=== PATIENT | male | born 1950 | race African-American/Black ===

== ENCOUNTER 2016-04-13 15:20 | Inpatient (IN) | payer OTHER, MEDICAID ==
[2016-04-13] VITALS (8 sets, daily range): BP systolic 114–145; BP diastolic 70–85; PULSE 67–87; RESP 16–26; TEMP 97.2–98.7; O2SAT 95–100
[~2016-04-13] VITALS: Ht 172.7 cm; Wt 90.7 kg
[~2016-04-13 15:20] MED LIST: ASPI-1063 PO; ATOR10TA68 PO; BUDE6HFA INH; CHOL200010 PO; CYCL-10 PO; DILT30TA36 PO; FOLI-43 PO; GLIP5TAB13 PO; LEVA15HF5 INH; LEVE500T13 PO; OMEP20CA10 PO; TERA5CAP58 PO; THIA100T13 PO; TIOT18CA3 IH
[2016-04-13] MEDS ORDERED: methylPREDNISolone SOD SUCC/PF 62.5 MG/ML VIAL ONE (15:39)
[2016-04-13] MEDS ORDERED: PIPERACILLIN/TAZO 3.38 GM in D5W 50 ML IV ONE (15:45)
[2016-04-13 16:07] LABS: BASOPHILS # (AUTO) 0.3 K/uL (0.0-0.2); BASOPHILS % (AUTO) 3.4 % (0.0-2.0); EOSINOPHILS % (AUTO) 0.3 % (0.0-4.0); HEMATOCRIT 41.9 % (36-54); HEMOGLOBIN 13.5 g/dL (14.0-18.0); LYMPHOCYTES # (AUTO) 1.1 K/uL (1.0-5.5); LYMPHOCYTES % (AUTO) 10.9 % (20.5-51.5); MEAN CORPUSCULAR HEMOGLOBIN 33 pg (27-31); MEAN CORPUSCULAR HGB CONC 32 % (32-36); MEAN CORPUSCULAR VOLUME 104 fL (79.0-98.0); MONOCYTES % (AUTO) 10.3 % (1.7-9.3); NEUTROPHILS # (AUTO) 7.3 K/uL (1.8-7.7); NEUTROPHILS % (AUTO) 75.1 % (40.0-70.0); PLATELET COUNT (AUTO) 251 K/uL (130-430); RED BLOOD CELL COUNT(AUTO) 4.05 MIL/uL (4.2-6.2); RED CELL DISTRIBUTION WIDTH 12.9 % (9.0-15.0); WHITE BLOOD COUNT (AUTO) 9.7 K/uL (4.8-10.8)
[2016-04-13 16:15] LABS: CALCIUM 8.4 mg/dL (8.4-11.0); CREATININE 1.39 mg/dL (0.55-1.30); POTASSIUM 4.5 mmol/L (3.5-5.1)
[2016-04-13] MEDS ORDERED: IPRATROPIUM/ALBUTEROL SULFATE 3 ML AMPUL.NEB INH ONE (16:15)
[2016-04-13] MEDS ORDERED: cefTRIAXone 1 GM IVPB PREMIX 50 ML IV ONE (16:15)
[2016-04-13 16:20] LABS: ALBUMIN 3.8 g/dL (3.4-4.8); TOTAL BILIRUBIN 0.7 mg/dL (0.0-1.0)
[2016-04-13] MEDS ORDERED: GLUXR500 PO (17:04)
[2016-04-13] MEDS ORDERED: PIPERACILLIN/TAZOBACTAM 3.375 GM/VIAL (ZOSYN) IV ONE ×2 (17:18→21:18)
[2016-04-13 17:55] LABS: BLOOD GAS PH 7.132 (7.350-7.450)
[2016-04-13 17:56] LABS: ABG TOTAL HEMOGLOBIN 14.5 G/dL (12.0-18.0); BLOOD GAS BASE EXCESS -0.8 mmol/L (-3.0-3.0); BLOOD GAS COHb% 1.9 % (0.5-1.5); BLOOD GAS HHB 9.4 % (0.0-6.0); BLOOD O2Hb% 88.2 % (94.0-97.0)
[2016-04-13 18:55] LABS: ABG TOTAL HEMOGLOBIN 14.4 G/dL (12.0-18.0); BLOOD GAS BASE EXCESS -0.2 mmol/L (-3.0-3.0); BLOOD GAS COHb% 1.6 % (0.5-1.5); BLOOD GAS HHB 8.5 % (0.0-6.0); BLOOD GAS PH 7.189 (7.350-7.450); BLOOD O2Hb% 89.2 % (94.0-97.0)
[2016-04-13] MEDS ORDERED: ROCURONIUM BROMIDE 10 MG/ML (ZEMURON) IV ONE (19:15)
[2016-04-13] MEDS ORDERED: ETOMIDATE 20 MG/ 10 ML VIAL (AMIDATE) IVP ONE (19:15)
[2016-04-13] MEDS ORDERED: MIDAZOLAM HCL 5 MG/5 ML VIAL ONE (19:25)
[2016-04-13] MEDS ORDERED: MIDAZOLAM HCL 5 MG/5 ML VIAL IVP ONE (19:30)
[2016-04-13] MEDS ORDERED: NACL 0.9% 1,000 ML IV ONE (19:45)
[2016-04-13] MEDS ORDERED: POTASSIUM CHLORIDE 10 MEQ in NACL 0.9% 1,000 ML IV SCH (20:00)
[2016-04-13 20:58] LABS: BLOOD GAS PH 7.331 (7.350-7.450)
[2016-04-13 20:59] LABS: ABG TOTAL HEMOGLOBIN 14.3 G/dL (12.0-18.0); BLOOD GAS BASE EXCESS 0.4 mmol/L (-3.0-3.0); BLOOD GAS COHb% 1.5 % (0.5-1.5); BLOOD GAS HHB 0.2 % (0.0-6.0); BLOOD O2Hb% 97.5 % (94.0-97.0)
[2016-04-13] MEDS: D5/0.45 NS 1,000 ML IV SCH (20:59)
[2016-04-13] MEDS ORDERED: HYDROmorphone 1 MG INJ. 1 MG/ML AMPUL IM PRN (21:00)
[2016-04-13] MEDS ORDERED: MAGNESIUM SULFATE 50 ML IV ONE (21:00)
[2016-04-13] MEDS: levETIRAcetam 500 MG in NS 100 ML IV SCH (21:33)
[2016-04-13] MEDS: PANTOPRAZOLE SODIUM 40 MG/VIAL (PROTONIX) IVP SCH (21:42)
[2016-04-13] MEDS: ENOXAPARIN SODIUM 30 MG/0.3 ML SYRINGE SUBCUT SCH (21:42)
[2016-04-13] MEDS: methylPREDNISolone SOD SUCC/PF 62.5 MG/ML VIAL IVP SCH (21:42)
[2016-04-13] MEDS ORDERED: ROCURONIUM BROMIDE 10 MG/ML (ZEMURON) ONE (22:00)
[2016-04-13] MEDS ORDERED: ETOMIDATE 20 MG/ 10 ML VIAL (AMIDATE) ONE (22:00)
[2016-04-13] MEDS: LORazepam 2 MG/ML VIAL IVP PRN ×2 (22:54→23:56)
[2016-04-13] MEDS: ALBUTEROL SULFATE 0.083% 2.5 MG/3 ML VIAL.NEB INH SCH (23:20)
[2016-04-13] MEDS: PIPERACILLIN/TAZO 3.375/DEX-IS 50 ML IV SCH (23:30)
[2016-04-13] MEDS: INSULIN REGULAR, HUMAN 100 UNITS/ML, 10 ML VIAL (novoLIN R) SUBCUT PRN (23:48)
[2016-04-14] VITALS (38 sets, daily range): BP systolic 108–158; BP diastolic 65–95; PULSE 74–116; RESP 16–32; TEMP 98.2–100.1; O2SAT 84–99
[2016-04-14] MEDS: HYDROmorphone 1 MG INJ. 1 MG/ML AMPUL IV PRN ×2 (00:18→22:19)
[2016-04-14] MEDS: ALBUTEROL SULFATE 0.083% 2.5 MG/3 ML VIAL.NEB INH SCH ×6 (03:30→23:31)
[2016-04-14] MEDS: LORazepam 2 MG/ML VIAL IVP PRN ×3 (05:45→22:20)
[2016-04-14] MEDS: PIPERACILLIN/TAZO 3.375/DEX-IS 50 ML IV SCH ×3 (05:45→18:24)
[2016-04-14] MEDS: methylPREDNISolone SOD SUCC/PF 62.5 MG/ML VIAL IVP SCH ×3 (05:46→22:19)
[2016-04-14] MEDS: INSULIN REGULAR, HUMAN 100 UNITS/ML, 10 ML VIAL (novoLIN R) SUBCUT PRN ×3 (06:29→18:47)
[2016-04-14 07:07] LABS: BASOPHILS % (AUTO) 0.1 % (0.0-2.0); HEMATOCRIT 36.3 % (36-54); LYMPHOCYTES # (AUTO) 0.2 K/uL (1.0-5.5); LYMPHOCYTES % (AUTO) 2.7 % (20.5-51.5); MEAN CORPUSCULAR HEMOGLOBIN 34 pg (27-31); MEAN CORPUSCULAR HGB CONC 33 % (32-36); MEAN CORPUSCULAR VOLUME 102 fL (79.0-98.0); MONOCYTES # (AUTO) 0.2 K/uL (0.0-1.0); MONOCYTES % (AUTO) 2.7 % (1.7-9.3); NEUTROPHILS # (AUTO) 7.9 K/uL (1.8-7.7); NEUTROPHILS % (AUTO) 94.5 % (40.0-70.0); PLATELET COUNT (AUTO) 228 K/uL (130-430); RED BLOOD CELL COUNT(AUTO) 3.55 MIL/uL (4.2-6.2); RED CELL DISTRIBUTION WIDTH 12.9 % (9.0-15.0); WHITE BLOOD COUNT (AUTO) 8.3 K/uL (4.8-10.8)
[2016-04-14 07:09] LABS: BILIRUBIN,URINE NEGATIVE (NEGATIVE); CLARITY/URINE CLOUDY (CLEAR); COLOR,URINE YELLOW (YELLOW); GLUCOSE,URINE NEGATIVE (NEGATIVE); KETONES,URINE NEGATIVE (NEGATIVE); LEUKOCYTE ESTERASE ,URINE 1+ (NEGATIVE); NITRITE, URINE NEGATIVE (NEGATIVE); PH,URINE 5.5 (5.0-8.0); PROTEIN URINE 2+ (NEGATIVE)
[2016-04-14 07:11] LABS: BLOOD, URINE TRACE (NEGATIVE)
[2016-04-14 07:24] LABS: BARBITURATE, URINE NEGATIVE (NEG <=200); BENZODIAZEPINE, URINE NEGATIVE (NEG <=150); CANNABINOID, URINE NEGATIVE (NEG <=50); COCAINE, URINE NEGATIVE (NEG <=150); METHAMPHETAMINES SCREEN,URINE NEGATIVE (NEG <=500); OPIATE, URINE NEGATIVE (NEG <=100); PHENCYCLIDINE SCREEN,URINE NEGATIVE (NEG <=25); UR TRICYCLIC ANTIDEPRESSANTS NEGATIVE (NEG <=300); URINE AMPHETAMINE NEGATIVE (NEG <=500); URINE METHADONE POSITIVE (NEG <=200); URINE OXYCODONE SCREEN NEGATIVE (NEG <=100); URINE PROPOXYPHENE SCREEN NEGATIVE (NEG <=300)
[2016-04-14 07:29] LABS: BACTERIA,URINE MANY /HPF (None Seen); URINE AMORPHOUS URATE 4+ /HPF (None Seen)
[2016-04-14 07:39] LABS: INR 1.2 (0.80-1.20); PROTHROMBIN TIME 12.8 SECS (9.5-12.5)
[2016-04-14 07:59] LABS: ALBUMIN 3.2 g/dL (3.4-4.8); CREATININE 1.55 mg/dL (0.55-1.30); POTASSIUM 4.7 mmol/L (3.5-5.1); TOTAL BILIRUBIN 0.7 mg/dL (0.0-1.0); TOTAL PROTEIN, SERUM 6.9 g/dL (6.4-8.3)
[2016-04-14 08:40] LABS: BLOOD GAS PH 7.316 (7.350-7.450)
[2016-04-14 08:41] LABS: ABG TOTAL HEMOGLOBIN 13.8 G/dL (12.0-18.0); BLOOD GAS BASE EXCESS -0.6 mmol/L (-3.0-3.0); BLOOD GAS COHb% 1.3 % (0.5-1.5); BLOOD O2Hb% 93.3 % (94.0-97.0)
[2016-04-14] MEDS: D5/0.45 NS 1,000 ML IV SCH ×2 (10:20→16:28)
[2016-04-14] MEDS: PANTOPRAZOLE SODIUM 40 MG/VIAL (PROTONIX) IVP SCH ×2 (10:20→20:09)
[2016-04-14] MEDS: levETIRAcetam 500 MG in NS 100 ML IV SCH ×2 (10:20→20:09)
[2016-04-14] MEDS ORDERED: ETOMIDATE 20 MG/ 10 ML VIAL (AMIDATE) IVP ONE (15:00)
[2016-04-14] MEDS ORDERED: VECURONIUM BROMIDE 10 MG/VIAL (NORCURON) IV ONE (15:00)
[2016-04-14 16:50] LABS: BARBITURATE, URINE NEGATIVE (NEG <=200); BENZODIAZEPINE, URINE POSITIVE (NEG <=150); CANNABINOID, URINE NEGATIVE (NEG <=50); COCAINE, URINE NEGATIVE (NEG <=150); METHAMPHETAMINES SCREEN,URINE NEGATIVE (NEG <=500); OPIATE, URINE POSITIVE (NEG <=100); PHENCYCLIDINE SCREEN,URINE NEGATIVE (NEG <=25); UR TRICYCLIC ANTIDEPRESSANTS NEGATIVE (NEG <=300); URINE AMPHETAMINE NEGATIVE (NEG <=500); URINE METHADONE NEGATIVE (NEG <=200); URINE OXYCODONE SCREEN NEGATIVE (NEG <=100); URINE PROPOXYPHENE SCREEN NEGATIVE (NEG <=300)
[2016-04-14] MEDS ORDERED: methylPREDNISolone SOD SUCC/PF 62.5 MG/ML VIAL IVP ONE (17:45)
[2016-04-14] MEDS ORDERED: methylPREDNISolone SOD SUCC/PF 62.5 MG/ML VIAL ONE (18:07)
[2016-04-14 18:50] LABS: ABG TOTAL HEMOGLOBIN 14.2 G/dL (12.0-18.0); BLOOD GAS PH 7.202 (7.350-7.450)
[2016-04-14 18:51] LABS: BLOOD GAS HHB 6.3 % (0.0-6.0); BLOOD O2Hb% 92.4 % (94.0-97.0)
[2016-04-14] MEDS ORDERED: MIDAZOLAM HCL 5 MG/5 ML VIAL ONE (19:06)
[2016-04-14] MEDS: ENOXAPARIN SODIUM 30 MG/0.3 ML SYRINGE SUBCUT SCH (20:10)
[2016-04-14 20:13] LABS: ABG TOTAL HEMOGLOBIN 13.3 G/dL (12.0-18.0); BLOOD GAS BASE EXCESS 0.2 mmol/L (-3.0-3.0); BLOOD GAS COHb% 0.6 % (0.5-1.5); BLOOD GAS HHB 2.8 % (0.0-6.0); BLOOD GAS PH 7.406 (7.350-7.450); BLOOD O2Hb% 96.3 % (94.0-97.0)
[2016-04-14] MEDS: PROPOFOL DRIP 100 ML IV PRN (22:50)
[2016-04-15] VITALS (37 sets, daily range): BP systolic 110–163; BP diastolic 61–104; PULSE 56–100; RESP 16–27; TEMP 97.7–98.3; O2SAT 90–99
[2016-04-15] MEDS: PIPERACILLIN/TAZO 3.375/DEX-IS 50 ML IV SCH ×4 (00:38→17:16)
[2016-04-15] MEDS: INSULIN REGULAR, HUMAN 100 UNITS/ML, 10 ML VIAL (novoLIN R) SUBCUT PRN ×2 (00:49→17:19)
[2016-04-15] MEDS: D5/0.45 NS 1,000 ML IV SCH ×3 (01:21→22:19)
[2016-04-15] MEDS: HYDROmorphone 1 MG INJ. 1 MG/ML AMPUL IV PRN (02:26)
[2016-04-15] MEDS: ALBUTEROL SULFATE 0.083% 2.5 MG/3 ML VIAL.NEB INH SCH ×6 (03:46→23:29)
[2016-04-15] MEDS: methylPREDNISolone SOD SUCC/PF 62.5 MG/ML VIAL IVP SCH ×3 (05:43→21:35)
[2016-04-15 07:38] LABS: BASOPHILS % (AUTO) 0.1 % (0.0-2.0); EOSINOPHILS % (AUTO) 0.1 % (0.0-4.0); HEMATOCRIT 36.8 % (36-54); HEMOGLOBIN 12.1 g/dL (14.0-18.0); LYMPHOCYTES # (AUTO) 0.2 K/uL (1.0-5.5); MEAN CORPUSCULAR HEMOGLOBIN 34 pg (27-31); MEAN CORPUSCULAR HGB CONC 33 % (32-36); MEAN CORPUSCULAR VOLUME 103 fL (79.0-98.0); MONOCYTES # (AUTO) 0.4 K/uL (0.0-1.0); MONOCYTES % (AUTO) 5.4 % (1.7-9.3); NEUTROPHILS # (AUTO) 7.4 K/uL (1.8-7.7); NEUTROPHILS % (AUTO) 91.4 % (40.0-70.0); PLATELET COUNT (AUTO) 236 K/uL (130-430); RED BLOOD CELL COUNT(AUTO) 3.57 MIL/uL (4.2-6.2); RED CELL DISTRIBUTION WIDTH 12.6 % (9.0-15.0)
[2016-04-15 08:10] LABS: ALBUMIN 3.1 g/dL (3.4-4.8); CALCIUM 8.1 mg/dL (8.4-11.0); CREATININE 1.3 mg/dL (0.55-1.30); TOTAL BILIRUBIN 0.9 mg/dL (0.0-1.0); TOTAL PROTEIN, SERUM 6.7 g/dL (6.4-8.3)
[2016-04-15] MEDS: levETIRAcetam 500 MG in NS 100 ML IV SCH ×2 (08:25→21:33)
[2016-04-15] MEDS: PANTOPRAZOLE SODIUM 40 MG/VIAL (PROTONIX) IVP SCH ×2 (08:25→21:33)
[2016-04-15 11:49] LABS: ABG TOTAL HEMOGLOBIN 13.7 G/dL (12.0-18.0); BLOOD GAS BASE EXCESS -0.2 mmol/L (-3.0-3.0); BLOOD GAS PH 7.363 (7.350-7.450); BLOOD O2Hb% 97.2 % (94.0-97.0)
[2016-04-15 11:50] LABS: BLOOD GAS COHb% 0.9 % (0.5-1.5); BLOOD GAS HHB 1.6 % (0.0-6.0)
[2016-04-15] MEDS: PROPOFOL DRIP 100 ML IV PRN ×2 (14:55→22:23)
[2016-04-15] MEDS: ENOXAPARIN SODIUM 30 MG/0.3 ML SYRINGE SUBCUT SCH (21:35)
[2016-04-16] VITALS (35 sets, daily range): BP systolic 114–147; BP diastolic 52–96; PULSE 57–105; RESP 13–36; TEMP 97.2–99.9; O2SAT 94–100
[2016-04-16] MEDS: PIPERACILLIN/TAZO 3.375/DEX-IS 50 ML IV SCH ×5 (00:09→23:39)
[2016-04-16] MEDS: INSULIN REGULAR, HUMAN 100 UNITS/ML, 10 ML VIAL (novoLIN R) SUBCUT PRN ×4 (00:21→18:22)
[2016-04-16] MEDS: PROPOFOL DRIP 100 ML IV PRN ×6 (02:11→20:46)
[2016-04-16] MEDS: ALBUTEROL SULFATE 0.083% 2.5 MG/3 ML VIAL.NEB INH SCH ×5 (04:31→20:02)
[2016-04-16] MEDS: methylPREDNISolone SOD SUCC/PF 62.5 MG/ML VIAL IVP SCH ×3 (05:29→21:39)
[2016-04-16 07:10] LABS: HEMATOCRIT 39.3 % (36-54); MEAN CORPUSCULAR HEMOGLOBIN 34 pg (27-31); MEAN CORPUSCULAR HGB CONC 33 % (32-36); MEAN CORPUSCULAR VOLUME 103 fL (79.0-98.0); PLATELET COUNT (AUTO) 255 K/uL (130-430); RED BLOOD CELL COUNT(AUTO) 3.83 MIL/uL (4.2-6.2); RED CELL DISTRIBUTION WIDTH 12.7 % (9.0-15.0)
[2016-04-16 07:14] LABS: WHITE BLOOD COUNT (AUTO) 11.2 K/uL (4.8-10.8)
[2016-04-16 07:29] LABS: CALCIUM 8.6 mg/dL (8.4-11.0); CREATININE 1.19 mg/dL (0.55-1.30); POTASSIUM 4.1 mmol/L (3.5-5.1)
[2016-04-16 08:19] LABS: ATYPICAL LYMPHOCYTES % 0 % (0-0); BAND % (MANUAL) 0 % (0-6); BASOPHILS % (MANUAL) 0 % (0-2); EOSINOPHILS % (MANUAL) 0 % (0-7); LYMPHOCYTES % (MANUAL) 3 % (20-46); MONOCYTES % (MANUAL) 4 % (0-11)
[2016-04-16] MEDS: PANTOPRAZOLE SODIUM 40 MG/VIAL (PROTONIX) IVP SCH ×2 (08:58→21:39)
[2016-04-16] MEDS: levETIRAcetam 500 MG in NS 100 ML IV SCH ×2 (08:59→20:39)
[2016-04-16 09:53] LABS: ABG TOTAL HEMOGLOBIN 13.7 G/dL (12.0-18.0); BLOOD GAS BASE EXCESS 0.3 mmol/L (-3.0-3.0); BLOOD GAS COHb% 1.1 % (0.5-1.5); BLOOD GAS HHB 7.1 % (0.0-6.0); BLOOD GAS PH 7.362 (7.350-7.450); BLOOD O2Hb% 91.5 % (94.0-97.0)
[2016-04-16] MEDS: LORazepam 2 MG/ML VIAL IVP PRN ×2 (09:59→22:38)
[2016-04-16] MEDS: ALBUTEROL SULFATE 0.083% 2.5 MG/3 ML VIAL.NEB INH PRN (13:35)
[2016-04-16] MEDS: D5/0.45 NS 1,000 ML IV SCH (20:35)
[2016-04-16] MEDS: ENOXAPARIN SODIUM 30 MG/0.3 ML SYRINGE SUBCUT SCH (21:39)
[2016-04-17] VITALS (37 sets, daily range): BP systolic 105–152; BP diastolic 58–98; PULSE 65–109; RESP 15–33; TEMP 98–99.7; O2SAT 93–100
[2016-04-17] MEDS: ALBUTEROL SULFATE 0.083% 2.5 MG/3 ML VIAL.NEB INH SCH ×7 (00:02→23:42)
[2016-04-17] MEDS: INSULIN REGULAR, HUMAN 100 UNITS/ML, 10 ML VIAL (novoLIN R) SUBCUT PRN ×5 (00:05→23:35)
[2016-04-17] MEDS: PROPOFOL DRIP 100 ML IV PRN ×6 (00:42→22:23)
[2016-04-17] MEDS: methylPREDNISolone SOD SUCC/PF 62.5 MG/ML VIAL IVP SCH ×3 (05:50→22:03)
[2016-04-17] MEDS: PIPERACILLIN/TAZO 3.375/DEX-IS 50 ML IV SCH ×4 (05:56→23:29)
[2016-04-17 06:48] LABS: BASOPHILS # (AUTO) 0.1 K/uL (0.0-0.2); BASOPHILS % (AUTO) 0.4 % (0.0-2.0); HEMOGLOBIN 12.9 g/dL (14.0-18.0); LYMPHOCYTES # (AUTO) 0.2 K/uL (1.0-5.5); LYMPHOCYTES % (AUTO) 1.2 % (20.5-51.5); MEAN CORPUSCULAR HEMOGLOBIN 33 pg (27-31); MEAN CORPUSCULAR HGB CONC 33 % (32-36); MEAN CORPUSCULAR VOLUME 101 fL (79.0-98.0); MONOCYTES # (AUTO) 0.8 K/uL (0.0-1.0); MONOCYTES % (AUTO) 5.9 % (1.7-9.3); NEUTROPHILS % (AUTO) 92.5 % (40.0-70.0); PLATELET COUNT (AUTO) 265 K/uL (130-430); RED BLOOD CELL COUNT(AUTO) 3.88 MIL/uL (4.2-6.2); RED CELL DISTRIBUTION WIDTH 12.7 % (9.0-15.0); WHITE BLOOD COUNT (AUTO) 14.1 K/uL (4.8-10.8)
[2016-04-17 07:03] LABS: CALCIUM 8.6 mg/dL (8.4-11.0); CREATININE 1.18 mg/dL (0.55-1.30); POTASSIUM 4.8 mmol/L (3.5-5.1)
[2016-04-17 07:39] LABS: BLOOD GAS PH 7.393 (7.350-7.450)
[2016-04-17 07:40] LABS: ABG TOTAL HEMOGLOBIN 14.1 G/dL (12.0-18.0); BLOOD GAS BASE EXCESS 3.4 mmol/L (-3.0-3.0); BLOOD O2Hb% 90.1 % (94.0-97.0)
[2016-04-17 07:41] LABS: BLOOD GAS COHb% 1.4 % (0.5-1.5)
[2016-04-17] MEDS: PANTOPRAZOLE SODIUM 40 MG/VIAL (PROTONIX) IVP SCH ×2 (08:47→20:47)
[2016-04-17] MEDS: levETIRAcetam 500 MG in NS 100 ML IV SCH ×2 (08:48→20:47)
[2016-04-17] MEDS: D5/0.45 NS 1,000 ML IV SCH (13:25)
[2016-04-17] MEDS ORDERED: FUROSEMIDE 20 MG/2 ML VIAL IVP ONE (14:30)
[2016-04-17] MEDS: HYDROmorphone 1 MG INJ. 1 MG/ML AMPUL IV PRN (17:32)
[2016-04-17] MEDS: ENOXAPARIN SODIUM 40 MG/0.4 ML SYRINGE ONE ×2 (20:48→20:50)
[2016-04-17] MEDS: ENOXAPARIN SODIUM 30 MG/0.3 ML SYRINGE SUBCUT SCH (20:50)
[2016-04-18] VITALS (34 sets, daily range): BP systolic 100–139; BP diastolic 22–92; PULSE 76–102; RESP 12–35; TEMP 97.6–100; O2SAT 95–100; Ht 172.7 cm; Wt 90.7 kg
[2016-04-18] MEDS: LORazepam 2 MG/ML VIAL IVP PRN (00:18)
[2016-04-18] MEDS: PROPOFOL DRIP 100 ML IV PRN ×5 (02:08→21:28)
[2016-04-18] MEDS: ALBUTEROL SULFATE 0.083% 2.5 MG/3 ML VIAL.NEB INH SCH ×6 (03:48→23:00)
[2016-04-18] MEDS: PIPERACILLIN/TAZO 3.375/DEX-IS 50 ML IV SCH ×3 (05:34→18:35)
[2016-04-18] MEDS: methylPREDNISolone SOD SUCC/PF 62.5 MG/ML VIAL IVP SCH ×3 (05:36→21:24)
[2016-04-18] MEDS: INSULIN REGULAR, HUMAN 100 UNITS/ML, 10 ML VIAL (novoLIN R) SUBCUT PRN ×3 (05:49→18:38)
[2016-04-18 06:20] LABS: BASOPHILS # (AUTO) 0.1 K/uL (0.0-0.2); BASOPHILS % (AUTO) 0.8 % (0.0-2.0); HEMATOCRIT 38.5 % (36-54); HEMOGLOBIN 12.5 g/dL (14.0-18.0); LYMPHOCYTES # (AUTO) 0.3 K/uL (1.0-5.5); LYMPHOCYTES % (AUTO) 2.5 % (20.5-51.5); MEAN CORPUSCULAR HEMOGLOBIN 33 pg (27-31); MEAN CORPUSCULAR HGB CONC 32 % (32-36); MEAN CORPUSCULAR VOLUME 102 fL (79.0-98.0); MONOCYTES # (AUTO) 0.8 K/uL (0.0-1.0); MONOCYTES % (AUTO) 7.6 % (1.7-9.3); NEUTROPHILS # (AUTO) 8.8 K/uL (1.8-7.7); NEUTROPHILS % (AUTO) 89.1 % (40.0-70.0); PLATELET COUNT (AUTO) 239 K/uL (130-430); RED BLOOD CELL COUNT(AUTO) 3.76 MIL/uL (4.2-6.2)
[2016-04-18 06:55] LABS: CALCIUM 8.5 mg/dL (8.4-11.0); CREATININE 1.11 mg/dL (0.55-1.30); POTASSIUM 4.8 mmol/L (3.5-5.1)
[2016-04-18] MEDS: PANTOPRAZOLE SODIUM 40 MG/VIAL (PROTONIX) IVP SCH ×2 (09:08→21:24)
[2016-04-18] MEDS: levETIRAcetam 500 MG in NS 100 ML IV SCH ×2 (09:09→21:26)
[2016-04-18] MEDS: D5/0.45 NS 1,000 ML IV SCH (09:10)
[2016-04-18 09:24] LABS: BLOOD GAS PH 7.313 (7.350-7.450)
[2016-04-18 09:26] LABS: ABG TOTAL HEMOGLOBIN 13.7 G/dL (12.0-18.0); BLOOD GAS BASE EXCESS 4.8 mmol/L (-3.0-3.0); BLOOD GAS COHb% 0.9 % (0.5-1.5); BLOOD GAS HHB 6.2 % (0.0-6.0); BLOOD O2Hb% 92.4 % (94.0-97.0)
[2016-04-18] MEDS ORDERED: ASPIRIN 81 MG TAB.CHEW PO ONE (11:00)
[2016-04-18] MEDS ORDERED: CARVEDILOL 6.25 MG TABLET (COREG) PO ONE (11:00)
[2016-04-18 13:41] LABS: ABG TOTAL HEMOGLOBIN 13.8 G/dL (12.0-18.0); BLOOD GAS BASE EXCESS 2.4 mmol/L (-3.0-3.0); BLOOD GAS COHb% 1.4 % (0.5-1.5); BLOOD GAS HHB 5.3 % (0.0-6.0); BLOOD GAS PH 7.299 (7.350-7.450); BLOOD O2Hb% 92.7 % (94.0-97.0)
[2016-04-18 14:35] LABS: INR 1.1 (0.80-1.20); PROTHROMBIN TIME 12.1 SECS (9.5-12.5)
[2016-04-18] MEDS ORDERED: CARVEDILOL 6.25 MG TABLET (COREG) PO SCH (21:00)
[2016-04-18] MEDS: ENOXAPARIN SODIUM 40 MG/0.4 ML SYRINGE SUBCUT SCH (21:24)
[2016-04-19] VITALS (36 sets, daily range): BP systolic 109–145; BP diastolic 55–98; PULSE 68–89; RESP 12–20; TEMP 97.5–98.7; O2SAT 96–100
[2016-04-19] MEDS: PIPERACILLIN/TAZO 3.375/DEX-IS 50 ML IV SCH ×5 (00:44→23:30)
[2016-04-19] MEDS: INSULIN REGULAR, HUMAN 100 UNITS/ML, 10 ML VIAL (novoLIN R) SUBCUT PRN ×5 (00:46→23:35)
[2016-04-19] MEDS: PROPOFOL DRIP 100 ML IV PRN ×4 (01:21→18:02)
[2016-04-19] MEDS: D5/0.45 NS 1,000 ML IV SCH ×2 (02:41→15:53)
[2016-04-19] MEDS: ALBUTEROL SULFATE 0.083% 2.5 MG/3 ML VIAL.NEB INH SCH ×6 (03:01→23:36)
[2016-04-19] MEDS: IPRATROPIUM BROM 0.5 MG/2.5 ML VIAL.NEB (ATROVENT) INH PRN (03:01)
[2016-04-19] MEDS: methylPREDNISolone SOD SUCC/PF 62.5 MG/ML VIAL IVP SCH ×3 (05:25→22:19)
[2016-04-19 07:19] LABS: BASOPHILS % (AUTO) 0.2 % (0.0-2.0); EOSINOPHILS % (AUTO) 0.1 % (0.0-4.0); HEMATOCRIT 38.2 % (36-54); HEMOGLOBIN 12.4 g/dL (14.0-18.0); LYMPHOCYTES # (AUTO) 0.2 K/uL (1.0-5.5); MEAN CORPUSCULAR HEMOGLOBIN 34 pg (27-31); MEAN CORPUSCULAR HGB CONC 32 % (32-36); MEAN CORPUSCULAR VOLUME 104 fL (79.0-98.0); MONOCYTES # (AUTO) 0.9 K/uL (0.0-1.0); MONOCYTES % (AUTO) 7.2 % (1.7-9.3); NEUTROPHILS # (AUTO) 11.2 K/uL (1.8-7.7); NEUTROPHILS % (AUTO) 90.5 % (40.0-70.0); PLATELET COUNT (AUTO) 231 K/uL (130-430); RED BLOOD CELL COUNT(AUTO) 3.67 MIL/uL (4.2-6.2); RED CELL DISTRIBUTION WIDTH 12.9 % (9.0-15.0); WHITE BLOOD COUNT (AUTO) 12.4 K/uL (4.8-10.8)
[2016-04-19 07:51] LABS: CALCIUM 8.7 mg/dL (8.4-11.0); CHLORIDE 106 mmol/L (98-107); CREATININE 1.13 mg/dL (0.55-1.30); GLUCOSE 237 mg/dL (70-99); POTASSIUM 4.8 mmol/L (3.5-5.1); SODIUM SERUM 141 mmol/L (136-145); UREA NITROGEN, BLOOD 26 mg/dL (8-21)
[2016-04-19 08:06] LABS: ALANINE AMINOTRANSFERASE 11 U/L (12-78); ALBUMIN 2.5 g/dL (3.4-4.8); ASPARTATE AMINOTRANSFERASE 15 U/L (10-37); FREE T4 (FREE THYROXINE) 0.8 ng/dl (0.8-1.5); THYROID STIMULATING HORMONE 0.98 uIu/mL (0.36-3.74); TOTAL BILIRUBIN 0.7 mg/dL (0.0-1.0); TOTAL PROTEIN, SERUM 5.9 g/dL (6.4-8.3)
[2016-04-19 08:12] LABS: ANION GAP < 3 (5-15); GFR AFRICAN AMERICAN 83 mL/min (>90)
[2016-04-19 08:29] LABS: CHOLESTEROL 120 mg/dL (<200); HDL CHOLESTEROL 60 mg/dL (>45); LDL CHOLESTEROL 52 mg/dL (<100); TRIGLYCERIDES 85 mg/dL (30-150)
[2016-04-19 08:29] LABS: BLOOD GAS PH 7.366 (7.350-7.450)
[2016-04-19 08:30] LABS: ABG TOTAL HEMOGLOBIN 13.3 G/dL (12.0-18.0); BLOOD GAS BASE EXCESS 6.9 mmol/L (-3.0-3.0); BLOOD GAS COHb% 1.3 % (0.5-1.5); BLOOD GAS HHB 3.7 % (0.0-6.0); BLOOD O2Hb% 94.4 % (94.0-97.0)
[2016-04-19] MEDS: levETIRAcetam 500 MG in NS 100 ML IV SCH ×2 (10:00→20:18)
[2016-04-19] MEDS: PANTOPRAZOLE SODIUM 40 MG/VIAL (PROTONIX) IVP SCH ×2 (10:01→20:21)
[2016-04-19] MEDS: CARVEDILOL 6.25 MG TABLET (COREG) PO SCH ×2 (10:01→20:21)
[2016-04-19] MEDS: ASPIRIN 81 MG TAB.CHEW PO SCH (10:02)
[2016-04-19] MEDS: ATORVASTATIN 20 MG TABLET PO SCH (10:02)
[2016-04-19] MEDS: HYDROmorphone 1 MG INJ. 1 MG/ML AMPUL IV PRN (15:59)
[2016-04-19] MEDS ORDERED: BUDESONIDE 0.5 MG/2 ML AMPUL.NEB INH ONE (16:15)
[2016-04-19] MEDS: BUDESONIDE 0.5 MG/2 ML AMPUL.NEB INH SCH (19:25)
[2016-04-19] MEDS: ENOXAPARIN SODIUM 40 MG/0.4 ML SYRINGE SUBCUT SCH (20:21)
[2016-04-20] VITALS (36 sets, daily range): BP systolic 100–142; BP diastolic 17–96; PULSE 79–97; RESP 14–26; TEMP 97.2–98.8; O2SAT 97–100
[2016-04-20] MEDS: IPRATROPIUM BROM 0.5 MG/2.5 ML VIAL.NEB (ATROVENT) INH PRN (02:47)
[2016-04-20] MEDS: ALBUTEROL SULFATE 0.083% 2.5 MG/3 ML VIAL.NEB INH SCH ×6 (02:47→23:14)
[2016-04-20] MEDS: PROPOFOL DRIP 100 ML IV PRN ×3 (04:31→15:30)
[2016-04-20] MEDS: PIPERACILLIN/TAZO 3.375/DEX-IS 50 ML IV SCH (05:31)
[2016-04-20] MEDS: methylPREDNISolone SOD SUCC/PF 62.5 MG/ML VIAL IVP SCH ×3 (05:32→22:45)
[2016-04-20] MEDS: INSULIN REGULAR, HUMAN 100 UNITS/ML, 10 ML VIAL (novoLIN R) SUBCUT PRN ×4 (05:36→23:42)
[2016-04-20 07:01] LABS: BASOPHILS % (AUTO) 0.2 % (0.0-2.0); EOSINOPHILS % (AUTO) 0.1 % (0.0-4.0); HEMATOCRIT 41.1 % (36-54); LYMPHOCYTES # (AUTO) 0.3 K/uL (1.0-5.5); LYMPHOCYTES % (AUTO) 1.7 % (20.5-51.5); MEAN CORPUSCULAR HEMOGLOBIN 32 pg (27-31); MEAN CORPUSCULAR HGB CONC 32 % (32-36); MEAN CORPUSCULAR VOLUME 103 fL (79.0-98.0); MONOCYTES # (AUTO) 1.1 K/uL (0.0-1.0); MONOCYTES % (AUTO) 6.6 % (1.7-9.3); PLATELET COUNT (AUTO) 266 K/uL (130-430); RED BLOOD CELL COUNT(AUTO) 4.01 MIL/uL (4.2-6.2); RED CELL DISTRIBUTION WIDTH 12.8 % (9.0-15.0); WHITE BLOOD COUNT (AUTO) 17.4 K/uL (4.8-10.8)
[2016-04-20 07:12] LABS: ALBUMIN 2.6 g/dL (3.4-4.8); CREATININE 1.06 mg/dL (0.55-1.30); POTASSIUM 4.6 mmol/L (3.5-5.1); TOTAL BILIRUBIN 0.7 mg/dL (0.0-1.0); TOTAL PROTEIN, SERUM 6.6 g/dL (6.4-8.3)
[2016-04-20] MEDS: BUDESONIDE 0.5 MG/2 ML AMPUL.NEB INH SCH ×2 (07:31→19:41)
[2016-04-20 07:50] LABS: BLOOD GAS PH 7.416 (7.350-7.450)
[2016-04-20 07:51] LABS: ABG TOTAL HEMOGLOBIN 13.7 G/dL (12.0-18.0); BLOOD GAS BASE EXCESS 7.1 mmol/L (-3.0-3.0); BLOOD GAS COHb% 1.5 % (0.5-1.5); BLOOD O2Hb% 94.2 % (94.0-97.0)
[2016-04-20] MEDS: ASPIRIN 81 MG TAB.CHEW PO SCH (09:02)
[2016-04-20] MEDS: ATORVASTATIN 20 MG TABLET PO SCH (09:02)
[2016-04-20] MEDS: PANTOPRAZOLE SODIUM 40 MG/VIAL (PROTONIX) IVP SCH ×2 (09:02→20:59)
[2016-04-20] MEDS: CARVEDILOL 6.25 MG TABLET (COREG) PO SCH ×2 (09:03→20:59)
[2016-04-20 09:45] LABS: NEUTROPHILS % (AUTO) 91.4 % (40.0-70.0)
[2016-04-20] MEDS: D5/0.45 NS 1,000 ML IV SCH (11:10)
[2016-04-20] MEDS: levETIRAcetam 500 MG in NS 100 ML IV SCH ×2 (11:11→21:02)
[2016-04-20] MEDS ORDERED: BISACODYL 10 MG/SUPPOSITORY RC PRN (13:15)
[2016-04-20] MEDS ORDERED: BISACODYL 10 MG/SUPPOSITORY RC ONE (13:15)
[2016-04-20] MEDS ORDERED: LACTOBACILLUS RHAMNOSUS GG 1 CAP CAPSULE PO ONE (14:15)
[2016-04-20] MEDS: PIPERACILLIN/TAZOBACTAM 3.375 GM/ D5W 50 ML IV SCH ×4 (17:48→23:43)
[2016-04-20] MEDS: ENOXAPARIN SODIUM 40 MG/0.4 ML SYRINGE SUBCUT SCH (21:00)
[2016-04-20] MEDS: LACTOBACILLUS RHAMNOSUS GG 1 CAP CAPSULE PO SCH (21:00)
[2016-04-21] VITALS (36 sets, daily range): BP systolic 104–151; BP diastolic 6–114; PULSE 71–106; RESP 14–26; TEMP 97.6–99.9; O2SAT 96–100
[2016-04-21] MEDS: PROPOFOL DRIP 100 ML IV PRN ×4 (00:59→21:39)
[2016-04-21] MEDS: ALBUTEROL SULFATE 0.083% 2.5 MG/3 ML VIAL.NEB INH SCH ×6 (02:28→23:15)
[2016-04-21] MEDS: D5/0.45 NS 1,000 ML IV SCH (06:35)
[2016-04-21] MEDS: PIPERACILLIN/TAZOBACTAM 3.375 GM/ D5W 50 ML IV SCH ×8 (06:41→23:48)
[2016-04-21] MEDS: methylPREDNISolone SOD SUCC/PF 62.5 MG/ML VIAL IVP SCH ×2 (06:41→21:15)
[2016-04-21] MEDS: LORazepam 2 MG/ML VIAL IVP PRN (06:42)
[2016-04-21] MEDS: INSULIN REGULAR, HUMAN 100 UNITS/ML, 10 ML VIAL (novoLIN R) SUBCUT PRN ×2 (06:43→17:59)
[2016-04-21 07:15] LABS: BASOPHILS % (AUTO) 0.1 % (0.0-2.0); HEMATOCRIT 38.5 % (36-54); HEMOGLOBIN 12.6 g/dL (14.0-18.0); LYMPHOCYTES # (AUTO) 0.4 K/uL (1.0-5.5); LYMPHOCYTES % (AUTO) 2.3 % (20.5-51.5); MEAN CORPUSCULAR HEMOGLOBIN 33 pg (27-31); MEAN CORPUSCULAR HGB CONC 33 % (32-36); MEAN CORPUSCULAR VOLUME 102 fL (79.0-98.0); MONOCYTES # (AUTO) 1.3 K/uL (0.0-1.0); MONOCYTES % (AUTO) 7.6 % (1.7-9.3); NEUTROPHILS # (AUTO) 14.8 K/uL (1.8-7.7); PLATELET COUNT (AUTO) 229 K/uL (130-430); RED BLOOD CELL COUNT(AUTO) 3.76 MIL/uL (4.2-6.2); RED CELL DISTRIBUTION WIDTH 12.9 % (9.0-15.0); WHITE BLOOD COUNT (AUTO) 16.5 K/uL (4.8-10.8)
[2016-04-21 07:41] LABS: CALCIUM 8.7 mg/dL (8.4-11.0); CREATININE 1.16 mg/dL (0.55-1.30)
[2016-04-21 07:57] LABS: BLOOD GAS PH 7.293 (7.350-7.450)
[2016-04-21 07:58] LABS: ABG TOTAL HEMOGLOBIN 13.6 G/dL (12.0-18.0); BLOOD GAS BASE EXCESS 5.5 mmol/L (-3.0-3.0); BLOOD GAS COHb% 1.2 % (0.5-1.5); BLOOD GAS HHB 4.5 % (0.0-6.0); BLOOD O2Hb% 93.6 % (94.0-97.0)
[2016-04-21] MEDS: PANTOPRAZOLE SODIUM 40 MG/VIAL (PROTONIX) IVP SCH ×2 (09:02→21:16)
[2016-04-21] MEDS: ATORVASTATIN 20 MG TABLET PO SCH (09:02)
[2016-04-21] MEDS: LACTOBACILLUS RHAMNOSUS GG 1 CAP CAPSULE PO SCH ×2 (09:03→21:17)
[2016-04-21] MEDS: ASPIRIN 81 MG TAB.CHEW PO SCH (09:03)
[2016-04-21] MEDS: CARVEDILOL 6.25 MG TABLET (COREG) PO SCH ×2 (09:04→21:16)
[2016-04-21] MEDS: levETIRAcetam 500 MG in NS 100 ML IV SCH ×2 (09:06→21:47)
[2016-04-21] MEDS: BUDESONIDE 0.5 MG/2 ML AMPUL.NEB INH SCH ×2 (09:11→19:53)
[2016-04-21] MEDS ORDERED: FUROSEMIDE 20 MG/2 ML VIAL IVP ONE (09:15)
[2016-04-21] MEDS ORDERED: MILK OF MAGNESIA 30 ML UDC PO ONE (09:15)
[2016-04-21] MEDS: ENOXAPARIN SODIUM 40 MG/0.4 ML SYRINGE SUBCUT SCH (21:17)
[2016-04-22] VITALS (37 sets, daily range): BP systolic 99–151; BP diastolic 61–100; PULSE 69–120; RESP 14–30; TEMP 98.6–99.1; O2SAT 95–100
[2016-04-22] MEDS: INSULIN REGULAR, HUMAN 100 UNITS/ML, 10 ML VIAL (novoLIN R) SUBCUT PRN ×4 (00:03→18:47)
[2016-04-22] MEDS: PROPOFOL DRIP 100 ML IV PRN ×2 (03:54→09:17)
[2016-04-22] MEDS: D5/0.45 NS 1,000 ML IV SCH ×2 (03:55→10:55)
[2016-04-22] MEDS: ALBUTEROL SULFATE 0.083% 2.5 MG/3 ML VIAL.NEB INH SCH ×5 (04:28→23:20)
[2016-04-22] MEDS: PIPERACILLIN/TAZOBACTAM 3.375 GM/ D5W 50 ML IV SCH ×6 (06:17→18:37)
[2016-04-22] MEDS: BUDESONIDE 0.5 MG/2 ML AMPUL.NEB INH SCH ×2 (07:00→19:38)
[2016-04-22 07:36] LABS: BLOOD GAS PH 7.355 (7.350-7.450)
[2016-04-22 07:37] LABS: BLOOD GAS COHb% 0.9 % (0.5-1.5); BLOOD GAS HHB 2.3 % (0.0-6.0); BLOOD O2Hb% 96.1 % (94.0-97.0)
[2016-04-22 07:42] LABS: CALCIUM 8.5 mg/dL (8.4-11.0); CREATININE 1.09 mg/dL (0.55-1.30); POTASSIUM 4.4 mmol/L (3.5-5.1)
[2016-04-22 07:51] LABS: BASOPHILS % (AUTO) 0.3 % (0.0-2.0); EOSINOPHILS % (AUTO) 0.1 % (0.0-4.0); HEMATOCRIT 34.1 % (36-54); HEMOGLOBIN 11.5 g/dL (14.0-18.0); LYMPHOCYTES # (AUTO) 0.3 K/uL (1.0-5.5); LYMPHOCYTES % (AUTO) 2.5 % (20.5-51.5); MEAN CORPUSCULAR HEMOGLOBIN 33 pg (27-31); MEAN CORPUSCULAR HGB CONC 34 % (32-36); MEAN CORPUSCULAR VOLUME 100 fL (79.0-98.0); MONOCYTES # (AUTO) 0.9 K/uL (0.0-1.0); MONOCYTES % (AUTO) 7.3 % (1.7-9.3); NEUTROPHILS # (AUTO) 10.9 K/uL (1.8-7.7); NEUTROPHILS % (AUTO) 89.8 % (40.0-70.0); PLATELET COUNT (AUTO) 216 K/uL (130-430); RED BLOOD CELL COUNT(AUTO) 3.43 MIL/uL (4.2-6.2); RED CELL DISTRIBUTION WIDTH 13.1 % (9.0-15.0); WHITE BLOOD COUNT (AUTO) 12.1 K/uL (4.8-10.8)
[2016-04-22] MEDS: PANTOPRAZOLE SODIUM 40 MG/VIAL (PROTONIX) IVP SCH ×2 (08:35→20:45)
[2016-04-22] MEDS: ATORVASTATIN 20 MG TABLET PO SCH (08:36)
[2016-04-22] MEDS: LACTOBACILLUS RHAMNOSUS GG 1 CAP CAPSULE PO SCH ×2 (08:36→20:45)
[2016-04-22] MEDS: methylPREDNISolone SOD SUCC/PF 62.5 MG/ML VIAL IVP SCH ×2 (08:36→20:45)
[2016-04-22] MEDS: ASPIRIN 81 MG TAB.CHEW PO SCH (08:38)
[2016-04-22] MEDS: CARVEDILOL 6.25 MG TABLET (COREG) PO SCH ×2 (08:38→20:45)
[2016-04-22] MEDS: levETIRAcetam 500 MG in NS 100 ML IV SCH ×2 (09:00→20:44)
[2016-04-22 12:42] LABS: ABG TOTAL HEMOGLOBIN 13.6 G/dL (12.0-18.0); BLOOD GAS BASE EXCESS 2.3 mmol/L (-3.0-3.0); BLOOD GAS COHb% 1.2 % (0.5-1.5); BLOOD GAS HHB 3.6 % (0.0-6.0); BLOOD GAS PH 7.319 (7.350-7.450); BLOOD O2Hb% 94.8 % (94.0-97.0)
[2016-04-22] MEDS: ENOXAPARIN SODIUM 40 MG/0.4 ML SYRINGE SUBCUT SCH (20:46)
[2016-04-23] VITALS (35 sets, daily range): BP systolic 95–144; BP diastolic 52–97; PULSE 52–103; RESP 14–30; TEMP 97.9–99.4; O2SAT 16–100
[2016-04-23] MEDS: PIPERACILLIN/TAZOBACTAM 3.375 GM/ D5W 50 ML IV SCH ×10 (00:10→23:20)
[2016-04-23] MEDS: INSULIN REGULAR, HUMAN 100 UNITS/ML, 10 ML VIAL (novoLIN R) SUBCUT PRN ×5 (00:13→23:21)
[2016-04-23] MEDS: ALBUTEROL SULFATE 0.083% 2.5 MG/3 ML VIAL.NEB INH SCH ×6 (04:02→23:35)
[2016-04-23] MEDS: LORazepam 2 MG/ML VIAL IVP PRN (04:09)
[2016-04-23] MEDS: D5/0.45 NS 1,000 ML IV SCH (06:19)
[2016-04-23 07:09] LABS: BASOPHILS # (AUTO) 0.1 K/uL (0.0-0.2); BASOPHILS % (AUTO) 0.7 % (0.0-2.0); EOSINOPHILS % (AUTO) 0.1 % (0.0-4.0); HEMATOCRIT 38.2 % (36-54); HEMOGLOBIN 12.3 g/dL (14.0-18.0); LYMPHOCYTES # (AUTO) 0.3 K/uL (1.0-5.5); LYMPHOCYTES % (AUTO) 2.4 % (20.5-51.5); MEAN CORPUSCULAR HEMOGLOBIN 34 pg (27-31); MEAN CORPUSCULAR HGB CONC 32 % (32-36); MEAN CORPUSCULAR VOLUME 104 fL (79.0-98.0); MONOCYTES # (AUTO) 1.1 K/uL (0.0-1.0); MONOCYTES % (AUTO) 8.1 % (1.7-9.3); NEUTROPHILS % (AUTO) 88.7 % (40.0-70.0); PLATELET COUNT (AUTO) 236 K/uL (130-430); RED BLOOD CELL COUNT(AUTO) 3.67 MIL/uL (4.2-6.2); RED CELL DISTRIBUTION WIDTH 12.9 % (9.0-15.0); WHITE BLOOD COUNT (AUTO) 13.5 K/uL (4.8-10.8)
[2016-04-23 07:13] LABS: CALCIUM 8.9 mg/dL (8.4-11.0); POTASSIUM 4.3 mmol/L (3.5-5.1)
[2016-04-23] MEDS: BUDESONIDE 0.5 MG/2 ML AMPUL.NEB INH SCH ×2 (07:35→19:42)
[2016-04-23 07:53] LABS: BLOOD GAS PH 7.277 (7.350-7.450)
[2016-04-23 07:54] LABS: ABG TOTAL HEMOGLOBIN 13.8 G/dL (12.0-18.0); BLOOD GAS COHb% 1.1 % (0.5-1.5); BLOOD GAS HHB 3.9 % (0.0-6.0); BLOOD O2Hb% 94.6 % (94.0-97.0)
[2016-04-23] MEDS: LACTOBACILLUS RHAMNOSUS GG 1 CAP CAPSULE PO SCH ×2 (08:23→21:19)
[2016-04-23] MEDS: levETIRAcetam 500 MG in NS 100 ML IV SCH ×2 (08:23→21:18)
[2016-04-23] MEDS: PANTOPRAZOLE SODIUM 40 MG/VIAL (PROTONIX) IVP SCH ×2 (08:23→21:18)
[2016-04-23] MEDS: ATORVASTATIN 20 MG TABLET PO SCH (08:24)
[2016-04-23] MEDS: ASPIRIN 81 MG TAB.CHEW PO SCH (08:24)
[2016-04-23] MEDS: CARVEDILOL 6.25 MG TABLET (COREG) PO SCH ×2 (08:25→21:19)
[2016-04-23] MEDS: methylPREDNISolone SOD SUCC/PF 62.5 MG/ML VIAL IVP SCH ×2 (09:00→21:18)
[2016-04-23] MEDS ORDERED: FUROSEMIDE 20 MG/2 ML VIAL IVP ONE (09:45)
[2016-04-23] MEDS: PROPOFOL DRIP 100 ML IV PRN ×2 (11:00→23:07)
[2016-04-23] MEDS ORDERED: MIDAZOLAM HCL 5 MG/5 ML VIAL ONE ×2 (12:48)
[2016-04-23] MEDS ORDERED: fentaNYL CITRATE/PF 100 MCG/2 ML AMP ONE (12:49)
[2016-04-23] MEDS: IPRATROPIUM BROM 0.5 MG/2.5 ML VIAL.NEB (ATROVENT) INH PRN (19:42)
[2016-04-23] MEDS: ENOXAPARIN SODIUM 40 MG/0.4 ML SYRINGE SUBCUT SCH (21:00)
[2016-04-24] VITALS (35 sets, daily range): BP systolic 121–166; BP diastolic 55–103; PULSE 57–100; RESP 14–29; TEMP 97.8–99; O2SAT 96–100
[2016-04-24] MEDS: ALBUTEROL SULFATE 0.083% 2.5 MG/3 ML VIAL.NEB INH SCH ×6 (03:23→23:00)
[2016-04-24] MEDS: IPRATROPIUM BROM 0.5 MG/2.5 ML VIAL.NEB (ATROVENT) INH PRN ×2 (03:24→20:42)
[2016-04-24] MEDS: PIPERACILLIN/TAZOBACTAM 3.375 GM/ D5W 50 ML IV SCH ×8 (06:22→23:33)
[2016-04-24] MEDS: INSULIN REGULAR, HUMAN 100 UNITS/ML, 10 ML VIAL (novoLIN R) SUBCUT PRN ×4 (06:24→23:40)
[2016-04-24] MEDS: D5/0.45 NS 1,000 ML IV SCH (06:31)
[2016-04-24 06:38] LABS: INR 1.1 (0.80-1.20); PROTHROMBIN TIME 12.1 SECS (9.5-12.5)
[2016-04-24 06:39] LABS: CALCIUM 8.7 mg/dL (8.4-11.0); CHLORIDE 102 mmol/L (98-107); CREATININE 0.94 mg/dL (0.55-1.30); GLUCOSE 224 mg/dL (70-99); POTASSIUM 3.8 mmol/L (3.5-5.1); SODIUM SERUM 140 mmol/L (136-145); UREA NITROGEN, BLOOD 19 mg/dL (8-21)
[2016-04-24 06:42] LABS: BASOPHILS % (AUTO) 0.3 % (0.0-2.0); EOSINOPHILS % (AUTO) 0.1 % (0.0-4.0); HEMATOCRIT 36.6 % (36-54); LYMPHOCYTES # (AUTO) 0.4 K/uL (1.0-5.5); LYMPHOCYTES % (AUTO) 3.6 % (20.5-51.5); MEAN CORPUSCULAR HEMOGLOBIN 34 pg (27-31); MEAN CORPUSCULAR HGB CONC 33 % (32-36); MEAN CORPUSCULAR VOLUME 103 fL (79.0-98.0); MONOCYTES # (AUTO) 0.7 K/uL (0.0-1.0); MONOCYTES % (AUTO) 6.2 % (1.7-9.3); NEUTROPHILS # (AUTO) 9.6 K/uL (1.8-7.7); NEUTROPHILS % (AUTO) 89.8 % (40.0-70.0); PLATELET COUNT (AUTO) 221 K/uL (130-430); RED BLOOD CELL COUNT(AUTO) 3.57 MIL/uL (4.2-6.2); WHITE BLOOD COUNT (AUTO) 10.7 K/uL (4.8-10.8)
[2016-04-24 06:49] LABS: GFR AFRICAN AMERICAN 103 mL/min (>90)
[2016-04-24 06:50] LABS: ANION GAP < 3 (5-15)
[2016-04-24] MEDS: BUDESONIDE 0.5 MG/2 ML AMPUL.NEB INH SCH ×2 (07:37→20:43)
[2016-04-24 08:09] LABS: BLOOD GAS BASE EXCESS 10.1 mmol/L (-3.0-3.0); BLOOD GAS PH 7.423 (7.350-7.450)
[2016-04-24 08:10] LABS: ABG TOTAL HEMOGLOBIN 13.7 G/dL (12.0-18.0); BLOOD GAS COHb% 0.9 % (0.5-1.5); BLOOD GAS HHB 4.1 % (0.0-6.0); BLOOD O2Hb% 94.7 % (94.0-97.0)
[2016-04-24] MEDS: ASPIRIN 81 MG TAB.CHEW PO SCH (08:44)
[2016-04-24] MEDS: ATORVASTATIN 20 MG TABLET PO SCH (08:46)
[2016-04-24] MEDS: CARVEDILOL 6.25 MG TABLET (COREG) PO SCH ×2 (08:46→20:51)
[2016-04-24] MEDS: LACTOBACILLUS RHAMNOSUS GG 1 CAP CAPSULE PO SCH ×2 (08:46→20:52)
[2016-04-24] MEDS: PANTOPRAZOLE SODIUM 40 MG/VIAL (PROTONIX) IVP SCH ×2 (08:48→20:48)
[2016-04-24] MEDS: methylPREDNISolone SOD SUCC/PF 62.5 MG/ML VIAL IVP SCH ×2 (08:49→20:48)
[2016-04-24] MEDS: levETIRAcetam 500 MG in NS 100 ML IV SCH ×2 (08:49→20:49)
[2016-04-24] MEDS: PROPOFOL DRIP 100 ML IV PRN (17:56)
[2016-04-24] MEDS: ENOXAPARIN SODIUM 40 MG/0.4 ML SYRINGE SUBCUT SCH (21:25)
[2016-04-25] VITALS (35 sets, daily range): BP systolic 109–155; BP diastolic 69–105; PULSE 50–112; RESP 14–32; TEMP 96.4–98.5; O2SAT 95–100
[2016-04-25] MEDS: D5/0.45 NS 1,000 ML IV SCH ×3 (00:09→18:55)
[2016-04-25] MEDS: HYDROmorphone 1 MG INJ. 1 MG/ML AMPUL IV PRN ×3 (00:09→17:40)
[2016-04-25 00:37] LABS: BLOOD GAS PH 7.312 (7.350-7.450)
[2016-04-25 00:39] LABS: ABG TOTAL HEMOGLOBIN 14.7 G/dL (12.0-18.0); BLOOD GAS BASE EXCESS 7.4 mmol/L (-3.0-3.0); BLOOD GAS COHb% 1.1 % (0.5-1.5); BLOOD O2Hb% 83.8 % (94.0-97.0)
[2016-04-25 00:40] LABS: BLOOD GAS HHB 14.7 % (0.0-6.0)
[2016-04-25] MEDS ORDERED: PROPOFOL DRIP 100 ML IV ONE (02:19)
[2016-04-25] MEDS: PROPOFOL DRIP 100 ML IV PRN ×2 (02:27→17:14)
[2016-04-25] MEDS: ALBUTEROL SULFATE 0.083% 2.5 MG/3 ML VIAL.NEB INH SCH ×6 (02:50→23:52)
[2016-04-25] MEDS: IPRATROPIUM BROM 0.5 MG/2.5 ML VIAL.NEB (ATROVENT) INH PRN ×3 (02:58→23:52)
[2016-04-25] MEDS: PIPERACILLIN/TAZOBACTAM 3.375 GM/ D5W 50 ML IV SCH ×6 (05:23→17:35)
[2016-04-25] MEDS: INSULIN REGULAR, HUMAN 100 UNITS/ML, 10 ML VIAL (novoLIN R) SUBCUT PRN ×3 (05:30→17:45)
[2016-04-25 06:44] LABS: BASOPHILS # (AUTO) 0.1 K/uL (0.0-0.2); BASOPHILS % (AUTO) 0.6 % (0.0-2.0); HEMATOCRIT 38.2 % (36-54); HEMOGLOBIN 12.6 g/dL (14.0-18.0); LYMPHOCYTES # (AUTO) 0.3 K/uL (1.0-5.5); LYMPHOCYTES % (AUTO) 2.4 % (20.5-51.5); MEAN CORPUSCULAR HEMOGLOBIN 33 pg (27-31); MEAN CORPUSCULAR HGB CONC 33 % (32-36); MEAN CORPUSCULAR VOLUME 101 fL (79.0-98.0); MONOCYTES # (AUTO) 0.8 K/uL (0.0-1.0); MONOCYTES % (AUTO) 6.8 % (1.7-9.3); NEUTROPHILS % (AUTO) 90.2 % (40.0-70.0); PLATELET COUNT (AUTO) 233 K/uL (130-430); RED BLOOD CELL COUNT(AUTO) 3.77 MIL/uL (4.2-6.2); RED CELL DISTRIBUTION WIDTH 13.1 % (9.0-15.0); WHITE BLOOD COUNT (AUTO) 11.2 K/uL (4.8-10.8)
[2016-04-25 06:45] LABS: CHLORIDE 104 mmol/L (98-107); CREATININE 1.08 mg/dL (0.55-1.30); GLUCOSE 216 mg/dL (70-99); POTASSIUM 3.8 mmol/L (3.5-5.1); SODIUM SERUM 141 mmol/L (136-145); UREA NITROGEN, BLOOD 21 mg/dL (8-21)
[2016-04-25 06:59] LABS: GFR AFRICAN AMERICAN 87 mL/min (>90)
[2016-04-25 07:00] LABS: ANION GAP < 3 (5-15)
[2016-04-25] MEDS ORDERED: ROCURONIUM BROMIDE 10 MG/ML (ZEMURON) IV ONE (07:00)
[2016-04-25] MEDS: BUDESONIDE 0.5 MG/2 ML AMPUL.NEB INH SCH ×2 (08:03→20:13)
[2016-04-25] MEDS: methylPREDNISolone SOD SUCC/PF 62.5 MG/ML VIAL IVP SCH ×2 (09:00→21:22)
[2016-04-25] MEDS: ATORVASTATIN 20 MG TABLET PO SCH (09:00)
[2016-04-25] MEDS: PANTOPRAZOLE SODIUM 40 MG/VIAL (PROTONIX) IVP SCH ×2 (09:00→21:22)
[2016-04-25] MEDS: LACTOBACILLUS RHAMNOSUS GG 1 CAP CAPSULE PO SCH (09:00)
[2016-04-25] MEDS: levETIRAcetam 500 MG in NS 100 ML IV SCH ×2 (09:00→21:23)
[2016-04-25] MEDS: ASPIRIN 81 MG TAB.CHEW PO SCH (09:00)
[2016-04-25] MEDS: CARVEDILOL 6.25 MG TABLET (COREG) PO SCH ×2 (09:00→21:00)
[2016-04-25 12:04] LABS: ABG TOTAL HEMOGLOBIN 13.2 G/dL (12.0-18.0); BLOOD GAS COHb% 0.7 % (0.5-1.5); BLOOD GAS HHB 1.9 % (0.0-6.0); BLOOD O2Hb% 97.1 % (94.0-97.0)
[2016-04-25] MEDS ORDERED: NS IRRIG SOLN 1000 ML IR ONE (14:00)
[2016-04-25] MEDS ORDERED: LIDOCAINE 1% 10 MG/ML, 20 ML MDV ONE (14:00)
[2016-04-25] MEDS ORDERED: MIDAZOLAM HCL 5 MG/5 ML VIAL ONE (14:00)
[2016-04-25] MEDS ORDERED: fentaNYL CITRATE/PF 100 MCG/2 ML AMP ONE (14:00)
[2016-04-25] MEDS ORDERED: ROCURONIUM BROMIDE 10 MG/ML (ZEMURON) ONE (14:00)
[2016-04-25] MEDS ORDERED: ETOMIDATE 20 MG/ 10 ML VIAL (AMIDATE) IVP ONE (15:00)
[2016-04-25] MEDS ORDERED: PANCURONIUM BROMIDE 10 MG/10 ML VIAL (PAVULON) IV ONE (15:00)
[2016-04-25] MEDS: ENOXAPARIN SODIUM 40 MG/0.4 ML SYRINGE SUBCUT SCH (21:22)
[2016-04-26] VITALS (33 sets, daily range): BP systolic 115–150; BP diastolic 32–103; PULSE 58–113; RESP 14–24; TEMP 98.5–99; O2SAT 93–100
[2016-04-26] MEDS: PIPERACILLIN/TAZOBACTAM 3.375 GM/ D5W 50 ML IV SCH ×8 (00:19→18:07)
[2016-04-26] MEDS: D5/0.45 NS 1,000 ML IV SCH (00:21)
[2016-04-26] MEDS: INSULIN REGULAR, HUMAN 100 UNITS/ML, 10 ML VIAL (novoLIN R) SUBCUT PRN ×4 (00:28→18:58)
[2016-04-26] MEDS: PROPOFOL DRIP 100 ML IV PRN (00:49)
[2016-04-26] MEDS: ALBUTEROL SULFATE 0.083% 2.5 MG/3 ML VIAL.NEB INH SCH ×6 (03:35→23:31)
[2016-04-26] MEDS: BUDESONIDE 0.5 MG/2 ML AMPUL.NEB INH SCH ×2 (07:00→20:10)
[2016-04-26 07:19] LABS: BASOPHILS % (AUTO) 0.3 % (0.0-2.0); EOSINOPHILS % (AUTO) 0.1 % (0.0-4.0); HEMATOCRIT 37.8 % (36-54); HEMOGLOBIN 12.4 g/dL (14.0-18.0); LYMPHOCYTES # (AUTO) 0.4 K/uL (1.0-5.5); MEAN CORPUSCULAR HEMOGLOBIN 34 pg (27-31); MEAN CORPUSCULAR HGB CONC 33 % (32-36); MEAN CORPUSCULAR VOLUME 103 fL (79.0-98.0); MONOCYTES # (AUTO) 0.8 K/uL (0.0-1.0); MONOCYTES % (AUTO) 5.3 % (1.7-9.3); NEUTROPHILS # (AUTO) 13.1 K/uL (1.8-7.7); NEUTROPHILS % (AUTO) 91.3 % (40.0-70.0); PLATELET COUNT (AUTO) 214 K/uL (130-430); RED BLOOD CELL COUNT(AUTO) 3.69 MIL/uL (4.2-6.2); RED CELL DISTRIBUTION WIDTH 12.7 % (9.0-15.0); WHITE BLOOD COUNT (AUTO) 14.3 K/uL (4.8-10.8)
[2016-04-26] MEDS: methylPREDNISolone SOD SUCC/PF 62.5 MG/ML VIAL IVP SCH ×2 (08:07→21:05)
[2016-04-26] MEDS: PANTOPRAZOLE SODIUM 40 MG/VIAL (PROTONIX) IVP SCH ×2 (08:08→21:06)
[2016-04-26] MEDS: levETIRAcetam 500 MG in NS 100 ML IV SCH ×2 (08:09→21:05)
[2016-04-26] MEDS: CARVEDILOL 6.25 MG TABLET (COREG) PO SCH ×2 (08:10→21:00)
[2016-04-26] MEDS: ASPIRIN 81 MG TAB.CHEW PO SCH (08:10)
[2016-04-26] MEDS: ATORVASTATIN 20 MG TABLET PO SCH (08:11)
[2016-04-26 08:20] LABS: ALBUMIN 2.3 g/dL (3.4-4.8); CALCIUM 8.7 mg/dL (8.4-11.0); CREATININE 0.99 mg/dL (0.55-1.30); POTASSIUM 3.3 mmol/L (3.5-5.1); TOTAL BILIRUBIN 0.5 mg/dL (0.0-1.0); TOTAL PROTEIN, SERUM 6.1 g/dL (6.4-8.3)
[2016-04-26] MEDS ORDERED: GASTROGRAFIN 120 ML ONE (11:12)
[2016-04-26] MEDS: MORPHINE 2 MG/ML INJ. SYRINGE IVP PRN ×2 (11:50→23:55)
[2016-04-26] MEDS ORDERED: FUROSEMIDE 20 MG/2 ML VIAL IVP ONE (18:00)
[2016-04-26] MEDS ORDERED: NACL 0.9% 1,000 ML IV ONE (18:30)
[2016-04-26] MEDS ORDERED: ONDANSETRON HCL 4 MG/2 ML VIAL IM PRN (18:30)
[2016-04-26] MEDS: ENOXAPARIN SODIUM 40 MG/0.4 ML SYRINGE SUBCUT SCH (21:05)
[2016-04-27] VITALS (36 sets, daily range): BP systolic 87–157; BP diastolic 47–99; PULSE 80–125; RESP 12–30; TEMP 97.6–99.2; O2SAT 91–100
[2016-04-27] MEDS: PIPERACILLIN/TAZOBACTAM 3.375 GM/ D5W 50 ML IV SCH ×4 (00:24→05:45)
[2016-04-27] MEDS: INSULIN REGULAR, HUMAN 100 UNITS/ML, 10 ML VIAL (novoLIN R) SUBCUT PRN ×4 (01:01→23:39)
[2016-04-27] MEDS ORDERED: NS 500 ML IV ONE ×2 (03:00→11:00)
[2016-04-27] MEDS: D5/0.45 NS 1,000 ML IV SCH ×3 (03:35→17:08)
[2016-04-27] MEDS: ALBUTEROL SULFATE 0.083% 2.5 MG/3 ML VIAL.NEB INH SCH ×6 (03:56→23:26)
[2016-04-27 07:33] LABS: HEMATOCRIT 37.8 % (36-54); HEMOGLOBIN 12.2 g/dL (14.0-18.0); MEAN CORPUSCULAR HEMOGLOBIN 33 pg (27-31); MEAN CORPUSCULAR HGB CONC 32 % (32-36); MEAN CORPUSCULAR VOLUME 103 fL (79.0-98.0); PLATELET COUNT (AUTO) 197 K/uL (130-430); RED BLOOD CELL COUNT(AUTO) 3.68 MIL/uL (4.2-6.2); RED CELL DISTRIBUTION WIDTH 13.3 % (9.0-15.0); WHITE BLOOD COUNT (AUTO) 17.7 K/uL (4.8-10.8)
[2016-04-27 07:45] LABS: ALBUMIN 2.4 g/dL (3.4-4.8); CALCIUM 8.5 mg/dL (8.4-11.0); CREATININE 1.86 mg/dL (0.55-1.30); POTASSIUM 3.5 mmol/L (3.5-5.1); TOTAL BILIRUBIN 0.6 mg/dL (0.0-1.0); TOTAL PROTEIN, SERUM 6.3 g/dL (6.4-8.3)
[2016-04-27 08:38] LABS: BASOPHILS % (MANUAL) 0 % (0-2); EOSINOPHILS % (MANUAL) 0 % (0-7); LYMPHOCYTES % (MANUAL) 3 % (20-46); MONOCYTES % (MANUAL) 6 % (0-11)
[2016-04-27] MEDS: ATORVASTATIN 20 MG TABLET PO SCH (09:18)
[2016-04-27] MEDS: methylPREDNISolone SOD SUCC/PF 62.5 MG/ML VIAL IVP SCH ×2 (09:18→21:23)
[2016-04-27] MEDS: levETIRAcetam 500 MG in NS 100 ML IV SCH ×3 (09:18→21:35)
[2016-04-27] MEDS: PANTOPRAZOLE SODIUM 40 MG/VIAL (PROTONIX) IVP SCH ×2 (09:18→21:22)
[2016-04-27] MEDS: ASPIRIN 81 MG TAB.CHEW PO SCH (09:18)
[2016-04-27] MEDS: CARVEDILOL 6.25 MG TABLET (COREG) PO SCH ×2 (09:19→21:00)
[2016-04-27] MEDS: BUDESONIDE 0.5 MG/2 ML AMPUL.NEB INH SCH ×2 (09:47→19:56)
[2016-04-27] MEDS: PIPERACILLIN/TAZO 3.375/DEX-IS 50 ML IV SCH ×3 (11:41→23:30)
[2016-04-27] MEDS ORDERED: FLUCONAZOLE 200 mg/ NS 100 ML IV ONE (12:00)
[2016-04-27] MEDS ORDERED: metroNIDAZOLE 500 mg/NS 100 ML IV SCH (14:00)
[2016-04-27 16:20] LABS: BILIRUBIN,URINE NEGATIVE (NEGATIVE); BLOOD, URINE 3+ (NEGATIVE); CLARITY/URINE CLEAR (CLEAR); COLOR,URINE YELLOW (YELLOW); GLUCOSE,URINE NEGATIVE (NEGATIVE); KETONES,URINE NEGATIVE (NEGATIVE); LEUKOCYTE ESTERASE ,URINE NEGATIVE (NEGATIVE); NITRITE, URINE NEGATIVE (NEGATIVE); PROTEIN URINE NEGATIVE (NEGATIVE); UROBILINOGEN,URINE 0.2 (0.2-1.0)
[2016-04-27 16:38] LABS: BACTERIA,URINE FEW /HPF (None Seen); MUCUS,URINE 1+ /LPF (None Seen); RBC,URINE 20-50 /HPF (0-3); WBC,URINE 0-3 /HPF (0-3)
[2016-04-27] MEDS: ENOXAPARIN SODIUM 40 MG/0.4 ML SYRINGE SUBCUT SCH (21:23)
[2016-04-27] MEDS: PROPOFOL DRIP 100 ML IV PRN (23:25)
[2016-04-28] VITALS (36 sets, daily range): BP systolic 105–151; BP diastolic 47–85; PULSE 48–105; RESP 11–31; TEMP 97.9–98.7; O2SAT 94–100
[2016-04-28] MEDS: D5/0.45 NS 1,000 ML IV SCH ×4 (00:20→18:29)
[2016-04-28] MEDS: ALBUTEROL SULFATE 0.083% 2.5 MG/3 ML VIAL.NEB INH SCH ×5 (03:57→23:45)
[2016-04-28] MEDS: PIPERACILLIN/TAZO 3.375/DEX-IS 50 ML IV SCH ×4 (05:13→23:53)
[2016-04-28] MEDS: INSULIN REGULAR, HUMAN 100 UNITS/ML, 10 ML VIAL (novoLIN R) SUBCUT PRN ×3 (05:38→18:33)
[2016-04-28] MEDS: PROPOFOL DRIP 100 ML IV PRN (06:24)
[2016-04-28 06:38] LABS: BASOPHILS % (AUTO) 0.3 % (0.0-2.0); EOSINOPHILS % (AUTO) 0.1 % (0.0-4.0); HEMATOCRIT 36.9 % (36-54); HEMOGLOBIN 11.8 g/dL (14.0-18.0); LYMPHOCYTES # (AUTO) 0.3 K/uL (1.0-5.5); MEAN CORPUSCULAR HEMOGLOBIN 33 pg (27-31); MEAN CORPUSCULAR HGB CONC 32 % (32-36); MEAN CORPUSCULAR VOLUME 104 fL (79.0-98.0); MONOCYTES # (AUTO) 0.6 K/uL (0.0-1.0); NEUTROPHILS # (AUTO) 13.4 K/uL (1.8-7.7); NEUTROPHILS % (AUTO) 93.6 % (40.0-70.0); PLATELET COUNT (AUTO) 181 K/uL (130-430); RED BLOOD CELL COUNT(AUTO) 3.56 MIL/uL (4.2-6.2); RED CELL DISTRIBUTION WIDTH 13.1 % (9.0-15.0); WHITE BLOOD COUNT (AUTO) 14.3 K/uL (4.8-10.8)
[2016-04-28 07:02] LABS: ALANINE AMINOTRANSFERASE 29 U/L (12-78); ALBUMIN 2.1 g/dL (3.4-4.8); ASPARTATE AMINOTRANSFERASE 17 U/L (10-37); CALCIUM 8.7 mg/dL (8.4-11.0); CHLORIDE 105 mmol/L (98-107); CREATININE 1.35 mg/dL (0.55-1.30); GLUCOSE 214 mg/dL (70-99); POTASSIUM 3.6 mmol/L (3.5-5.1); SODIUM SERUM 143 mmol/L (136-145); TOTAL BILIRUBIN 0.4 mg/dL (0.0-1.0); UREA NITROGEN, BLOOD 19 mg/dL (8-21)
[2016-04-28 07:11] LABS: GFR AFRICAN AMERICAN 68 mL/min (>90)
[2016-04-28 07:14] LABS: ANION GAP < 3 (5-15)
[2016-04-28] MEDS: methylPREDNISolone SOD SUCC/PF 62.5 MG/ML VIAL IVP SCH (08:59)
[2016-04-28] MEDS: levETIRAcetam 500 MG in NS 100 ML IV SCH ×2 (08:59→21:31)
[2016-04-28] MEDS: PANTOPRAZOLE SODIUM 40 MG/VIAL (PROTONIX) IVP SCH ×2 (08:59→21:31)
[2016-04-28] MEDS: ASPIRIN 81 MG TAB.CHEW PO SCH (08:59)
[2016-04-28] MEDS: CARVEDILOL 6.25 MG TABLET (COREG) PO SCH ×2 (09:00→21:32)
[2016-04-28] MEDS: ATORVASTATIN 20 MG TABLET PO SCH (09:00)
[2016-04-28] MEDS: FLUCONAZOLE 200 mg/ NS 100 ML IV SCH (10:30)
[2016-04-28] MEDS ORDERED: *TPN PER PHARMACY XX PRN (15:15)
[2016-04-28] MEDS: BUDESONIDE 0.5 MG/2 ML AMPUL.NEB INH SCH ×2 (18:06→19:46)
[2016-04-28] MEDS: ENOXAPARIN SODIUM 40 MG/0.4 ML SYRINGE SUBCUT SCH (21:33)
[2016-04-29] VITALS (36 sets, daily range): BP systolic 101–160; BP diastolic 65–101; PULSE 45–108; RESP 11–32; TEMP 98.1–99.3; O2SAT 93–100
[2016-04-29] MEDS: INSULIN REGULAR, HUMAN 100 UNITS/ML, 10 ML VIAL (novoLIN R) SUBCUT PRN ×5 (00:01→23:59)
[2016-04-29] MEDS: D5/0.45 NS 1,000 ML IV SCH ×3 (02:19→23:57)
[2016-04-29] MEDS: PROPOFOL DRIP 100 ML IV PRN (02:21)
[2016-04-29] MEDS: ALBUTEROL SULFATE 0.083% 2.5 MG/3 ML VIAL.NEB INH SCH ×6 (03:38→23:15)
[2016-04-29] MEDS: PIPERACILLIN/TAZO 3.375/DEX-IS 50 ML IV SCH ×4 (06:36→23:57)
[2016-04-29 06:39] LABS: BASOPHILS # (AUTO) 0.1 K/uL (0.0-0.2); BASOPHILS % (AUTO) 0.6 % (0.0-2.0); EOSINOPHILS # (AUTO) 0.1 K/uL (0.0-0.4); EOSINOPHILS % (AUTO) 0.6 % (0.0-4.0); HEMATOCRIT 34.7 % (36-54); HEMOGLOBIN 11.1 g/dL (14.0-18.0); LYMPHOCYTES # (AUTO) 0.6 K/uL (1.0-5.5); LYMPHOCYTES % (AUTO) 4.2 % (20.5-51.5); MEAN CORPUSCULAR HEMOGLOBIN 33 pg (27-31); MEAN CORPUSCULAR HGB CONC 32 % (32-36); MEAN CORPUSCULAR VOLUME 104 fL (79.0-98.0); MONOCYTES # (AUTO) 0.7 K/uL (0.0-1.0); MONOCYTES % (AUTO) 5.2 % (1.7-9.3); NEUTROPHILS # (AUTO) 12.7 K/uL (1.8-7.7); NEUTROPHILS % (AUTO) 89.4 % (40.0-70.0); PLATELET COUNT (AUTO) 163 K/uL (130-430); RED BLOOD CELL COUNT(AUTO) 3.34 MIL/uL (4.2-6.2); RED CELL DISTRIBUTION WIDTH 12.9 % (9.0-15.0); WHITE BLOOD COUNT (AUTO) 14.2 K/uL (4.8-10.8)
[2016-04-29 06:50] LABS: BLOOD GAS BASE EXCESS 9.9 mmol/L (-3.0-3.0); BLOOD GAS COHb% 0.7 % (0.5-1.5); BLOOD GAS HHB 0.7 % (0.0-6.0); BLOOD GAS PH 7.318 (7.350-7.450)
[2016-04-29 06:51] LABS: BLOOD O2Hb% 97.9 % (94.0-97.0)
[2016-04-29 06:59] LABS: ALBUMIN 2.1 g/dL (3.4-4.8); CALCIUM 8.3 mg/dL (8.4-11.0); UREA NITROGEN, BLOOD 10 mg/dL (8-21)
[2016-04-29] MEDS: BUDESONIDE 0.5 MG/2 ML AMPUL.NEB INH SCH ×2 (07:11→21:03)
[2016-04-29 07:20] LABS: ALANINE AMINOTRANSFERASE 27 U/L (12-78); ASPARTATE AMINOTRANSFERASE 16 U/L (10-37); CHLORIDE 104 mmol/L (98-107); CREATININE 0.83 mg/dL (0.55-1.30); GLUCOSE 187 mg/dL (70-99); PHOSPHORUS 1.7 mg/dL (2.7-4.5); SODIUM SERUM 144 mmol/L (136-145); TOTAL BILIRUBIN 0.7 mg/dL (0.0-1.0); TRIGLYCERIDES 68 mg/dL (30-150)
[2016-04-29 07:29] LABS: GFR AFRICAN AMERICAN 118 mL/min (>90)
[2016-04-29 07:30] LABS: ANION GAP < 3 (5-15)
[2016-04-29] MEDS: levETIRAcetam 500 MG in NS 100 ML IV SCH ×2 (09:21→22:11)
[2016-04-29] MEDS: PANTOPRAZOLE SODIUM 40 MG/VIAL (PROTONIX) IVP SCH ×2 (09:22→22:11)
[2016-04-29] MEDS: methylPREDNISolone SOD SUCC 40 MG/ML VIAL IVP SCH (09:22)
[2016-04-29] MEDS: ASPIRIN 81 MG TAB.CHEW PO SCH (09:22)
[2016-04-29] MEDS: CARVEDILOL 6.25 MG TABLET (COREG) PO SCH ×2 (09:23→22:12)
[2016-04-29] MEDS: ATORVASTATIN 20 MG TABLET PO SCH (09:23)
[2016-04-29] MEDS ORDERED: KCL 40 mEq in 100 mL (PREMIX) 100 ML IV ONE (10:00)
[2016-04-29] MEDS ORDERED: K PHOS 40 MM in NS 250 ML IV ONE (10:30)
[2016-04-29] MEDS: FLUCONAZOLE 200 mg/ NS 100 ML IV SCH (11:34)
[2016-04-29] MEDS: TPN CENTRAL IV SCH ×10 (14:12)
[2016-04-29] MEDS: SODIUM CHLORIDE IV SCH ×10 (14:12)
[2016-04-29] MEDS: [UNRECOGNIZED DRUG - OTHER] IV SCH ×10 (14:12)
[2016-04-29] MEDS: POTASSIUM CHLORIDE IV SCH ×10 (14:12)
[2016-04-29] MEDS: MORPHINE 2 MG/ML INJ. SYRINGE IVP PRN (14:22)
[2016-04-29] MEDS: ENOXAPARIN SODIUM 40 MG/0.4 ML SYRINGE SUBCUT SCH (22:11)
[2016-04-30] VITALS (36 sets, daily range): BP systolic 94–143; BP diastolic 37–80; PULSE 63–101; RESP 19–30; TEMP 98.1–99.9; O2SAT 95–100
[2016-04-30] MEDS: ALBUTEROL SULFATE 0.083% 2.5 MG/3 ML VIAL.NEB INH SCH ×6 (04:33→22:17)
[2016-04-30] MEDS: PIPERACILLIN/TAZO 3.375/DEX-IS 50 ML IV SCH ×4 (06:14→23:44)
[2016-04-30] MEDS: D5/0.45 NS 1,000 ML IV SCH ×2 (06:20→19:28)
[2016-04-30] MEDS: INSULIN REGULAR, HUMAN 100 UNITS/ML, 10 ML VIAL (novoLIN R) SUBCUT PRN ×4 (06:41→23:47)
[2016-04-30] MEDS: BUDESONIDE 0.5 MG/2 ML AMPUL.NEB INH SCH ×2 (07:07→19:56)
[2016-04-30 07:18] LABS: BASOPHILS # (AUTO) 0.1 K/uL (0.0-0.2); BASOPHILS % (AUTO) 0.8 % (0.0-2.0); EOSINOPHILS # (AUTO) 0.1 K/uL (0.0-0.4); EOSINOPHILS % (AUTO) 0.6 % (0.0-4.0); HEMATOCRIT 35.9 % (36-54); HEMOGLOBIN 10.7 g/dL (14.0-18.0); LYMPHOCYTES # (AUTO) 0.6 K/uL (1.0-5.5); LYMPHOCYTES % (AUTO) 4.8 % (20.5-51.5); MEAN CORPUSCULAR HEMOGLOBIN 34 pg (27-31); MEAN CORPUSCULAR HGB CONC 30 % (32-36); MEAN CORPUSCULAR VOLUME 114 fL (79.0-98.0); MONOCYTES # (AUTO) 0.9 K/uL (0.0-1.0); MONOCYTES % (AUTO) 7.1 % (1.7-9.3); NEUTROPHILS # (AUTO) 11.2 K/uL (1.8-7.7); NEUTROPHILS % (AUTO) 86.7 % (40.0-70.0); PLATELET COUNT (AUTO) 142 K/uL (130-430); RED BLOOD CELL COUNT(AUTO) 3.15 MIL/uL (4.2-6.2); RED CELL DISTRIBUTION WIDTH 14.5 % (9.0-15.0); WHITE BLOOD COUNT (AUTO) 12.9 K/uL (4.8-10.8)
[2016-04-30 07:56] LABS: ABG TOTAL HEMOGLOBIN 12.3 G/dL (12.0-18.0); BLOOD GAS COHb% 1.3 % (0.5-1.5); BLOOD O2Hb% 93.1 % (94.0-97.0)
[2016-04-30] MEDS: FLUCONAZOLE 200 mg/ NS 100 ML IV SCH (08:45)
[2016-04-30] MEDS: PANTOPRAZOLE SODIUM 40 MG/VIAL (PROTONIX) IVP SCH ×2 (08:45→21:35)
[2016-04-30] MEDS: levETIRAcetam 500 MG in NS 100 ML IV SCH ×2 (08:45→21:37)
[2016-04-30] MEDS: methylPREDNISolone SOD SUCC 40 MG/ML VIAL IVP SCH (08:46)
[2016-04-30] MEDS: ATORVASTATIN 20 MG TABLET PO SCH (08:47)
[2016-04-30] MEDS: ASPIRIN 81 MG TAB.CHEW PO SCH (08:47)
[2016-04-30] MEDS: CARVEDILOL 6.25 MG TABLET (COREG) PO SCH ×2 (08:52→21:36)
[2016-04-30] MEDS: MINERAL OIL 30 ML UDC NG SCH (08:53)
[2016-04-30 09:18] LABS: ALANINE AMINOTRANSFERASE 29 U/L (12-78); ALBUMIN 1.8 g/dL (3.4-4.8); ASPARTATE AMINOTRANSFERASE 24 U/L (10-37); CALCIUM 8.3 mg/dL (8.4-11.0); CHLORIDE 107 mmol/L (98-107); CREATININE 0.92 mg/dL (0.55-1.30); GLUCOSE 246 mg/dL (70-99); POTASSIUM 3.5 mmol/L (3.5-5.1); SODIUM SERUM 139 mmol/L (136-145); TOTAL BILIRUBIN 0.7 mg/dL (0.0-1.0); TOTAL PROTEIN, SERUM 5.9 g/dL (6.4-8.3); UREA NITROGEN, BLOOD 9 mg/dL (8-21)
[2016-04-30 09:21] LABS: ANION GAP < 3 (5-15); GFR AFRICAN AMERICAN 105 mL/min (>90)
[2016-04-30] MEDS: [UNRECOGNIZED DRUG - OTHER] IV SCH ×10 (11:58)
[2016-04-30] MEDS: POTASSIUM CHLORIDE IV SCH ×10 (11:58)
[2016-04-30] MEDS: SODIUM CHLORIDE IV SCH ×10 (11:58)
[2016-04-30] MEDS: TPN CENTRAL IV SCH ×10 (11:58)
[2016-04-30] MEDS ORDERED: FUROSEMIDE 20 MG TABLET PO ONE (19:00)
[2016-04-30] MEDS: ENOXAPARIN SODIUM 40 MG/0.4 ML SYRINGE SUBCUT SCH (21:36)
[2016-05-01] VITALS (33 sets, daily range): BP systolic 103–144; BP diastolic 46–93; PULSE 80–107; RESP 15–33; TEMP 97.3–99.8; O2SAT 94–100
[2016-05-01] MEDS: ALBUTEROL SULFATE 0.083% 2.5 MG/3 ML VIAL.NEB INH SCH ×6 (03:03→23:18)
[2016-05-01] MEDS: PIPERACILLIN/TAZO 3.375/DEX-IS 50 ML IV SCH ×4 (06:31→23:59)
[2016-05-01] MEDS: INSULIN REGULAR, HUMAN 100 UNITS/ML, 10 ML VIAL (novoLIN R) SUBCUT PRN ×3 (06:37→18:38)
[2016-05-01 06:42] LABS: BASOPHILS # (AUTO) 0.1 K/uL (0.0-0.2); BASOPHILS % (AUTO) 0.6 % (0.0-2.0); EOSINOPHILS # (AUTO) 0.1 K/uL (0.0-0.4); EOSINOPHILS % (AUTO) 0.6 % (0.0-4.0); HEMATOCRIT 34.1 % (36-54); HEMOGLOBIN 10.9 g/dL (14.0-18.0); LYMPHOCYTES # (AUTO) 0.6 K/uL (1.0-5.5); LYMPHOCYTES % (AUTO) 5.1 % (20.5-51.5); MEAN CORPUSCULAR HEMOGLOBIN 33 pg (27-31); MEAN CORPUSCULAR HGB CONC 32 % (32-36); MEAN CORPUSCULAR VOLUME 103 fL (79.0-98.0); MONOCYTES # (AUTO) 0.7 K/uL (0.0-1.0); MONOCYTES % (AUTO) 6.5 % (1.7-9.3); NEUTROPHILS # (AUTO) 9.4 K/uL (1.8-7.7); NEUTROPHILS % (AUTO) 87.2 % (40.0-70.0); PLATELET COUNT (AUTO) 172 K/uL (130-430); RED BLOOD CELL COUNT(AUTO) 3.32 MIL/uL (4.2-6.2); RED CELL DISTRIBUTION WIDTH 12.8 % (9.0-15.0); WHITE BLOOD COUNT (AUTO) 10.9 K/uL (4.8-10.8)
[2016-05-01 07:13] LABS: CALCIUM 8.5 mg/dL (8.4-11.0); CHLORIDE 106 mmol/L (98-107); CREATININE 0.93 mg/dL (0.55-1.30); GLUCOSE 340 mg/dL (70-99); PHOSPHORUS 2.3 mg/dL (2.7-4.5); POTASSIUM 3.5 mmol/L (3.5-5.1); SODIUM SERUM 141 mmol/L (136-145); UREA NITROGEN, BLOOD 10 mg/dL (8-21)
[2016-05-01 07:14] LABS: GFR AFRICAN AMERICAN 104 mL/min (>90)
[2016-05-01 07:15] LABS: ANION GAP < 3 (5-15)
[2016-05-01] MEDS: BUDESONIDE 0.5 MG/2 ML AMPUL.NEB INH SCH ×2 (07:48→19:52)
[2016-05-01 08:10] LABS: ABG TOTAL HEMOGLOBIN 12.4 G/dL (12.0-18.0); BLOOD GAS BASE EXCESS 3.8 mmol/L (-3.0-3.0); BLOOD GAS COHb% 0.4 % (0.5-1.5); BLOOD GAS HHB 2.8 % (0.0-6.0); BLOOD GAS PH 7.247 (7.350-7.450); BLOOD O2Hb% 96.4 % (94.0-97.0)
[2016-05-01] MEDS: PANTOPRAZOLE SODIUM 40 MG/VIAL (PROTONIX) IVP SCH ×2 (08:25→21:41)
[2016-05-01] MEDS: ATORVASTATIN 20 MG TABLET PO SCH (08:25)
[2016-05-01] MEDS: ASPIRIN 81 MG TAB.CHEW PO SCH (08:25)
[2016-05-01] MEDS: methylPREDNISolone SOD SUCC 40 MG/ML VIAL IVP SCH (08:26)
[2016-05-01] MEDS: CARVEDILOL 6.25 MG TABLET (COREG) PO SCH ×2 (08:26→21:41)
[2016-05-01] MEDS: LORazepam 2 MG/ML VIAL IVP PRN (08:27)
[2016-05-01] MEDS: FLUCONAZOLE 200 mg/ NS 100 ML IV SCH (08:45)
[2016-05-01] MEDS: levETIRAcetam 500 MG in NS 100 ML IV SCH ×2 (08:47→21:43)
[2016-05-01] MEDS: MINERAL OIL 30 ML UDC NG SCH (08:47)
[2016-05-01] MEDS: TPN CENTRAL IV SCH ×10 (08:48)
[2016-05-01] MEDS: POTASSIUM CHLORIDE IV SCH ×10 (08:48)
[2016-05-01] MEDS: SODIUM CHLORIDE IV SCH ×10 (08:48)
[2016-05-01] MEDS: [UNRECOGNIZED DRUG - OTHER] IV SCH ×10 (08:48)
[2016-05-01] MEDS: D5/0.45 NS 1,000 ML IV SCH ×2 (08:53→21:43)
[2016-05-01] MEDS ORDERED: GASTROGRAFIN 120 ML ONE (09:00)
[2016-05-01] MEDS: IPRATROPIUM BROM 0.5 MG/2.5 ML VIAL.NEB (ATROVENT) INH PRN ×2 (19:52→23:18)
[2016-05-01] MEDS: ENOXAPARIN SODIUM 40 MG/0.4 ML SYRINGE SUBCUT SCH (21:41)
[2016-05-02] VITALS (35 sets, daily range): BP systolic 96–145; BP diastolic 48–90; PULSE 65–108; RESP 12–30; TEMP 98.2–99.5; O2SAT 99–100
[2016-05-02] MEDS: INSULIN REGULAR, HUMAN 100 UNITS/ML, 10 ML VIAL (novoLIN R) SUBCUT PRN ×4 (00:02→18:53)
[2016-05-02] MEDS: ALBUTEROL SULFATE 0.083% 2.5 MG/3 ML VIAL.NEB INH SCH ×3 (02:58→23:21)
[2016-05-02] MEDS: IPRATROPIUM BROM 0.5 MG/2.5 ML VIAL.NEB (ATROVENT) INH PRN (02:58)
[2016-05-02] MEDS: PIPERACILLIN/TAZO 3.375/DEX-IS 50 ML IV SCH ×4 (05:37→23:58)
[2016-05-02] MEDS: POTASSIUM CHLORIDE IV SCH ×10 (05:40)
[2016-05-02] MEDS: TPN CENTRAL IV SCH ×10 (05:40)
[2016-05-02] MEDS: SODIUM CHLORIDE IV SCH ×10 (05:40)
[2016-05-02] MEDS: [UNRECOGNIZED DRUG - OTHER] IV SCH ×10 (05:40)
[2016-05-02 06:26] LABS: CALCIUM 8.8 mg/dL (8.4-11.0); CHLORIDE 107 mmol/L (98-107); CREATININE 1.06 mg/dL (0.55-1.30); GLUCOSE 372 mg/dL (70-99); PHOSPHORUS 2.5 mg/dL (2.7-4.5); POTASSIUM 3.9 mmol/L (3.5-5.1); SODIUM SERUM 144 mmol/L (136-145); UREA NITROGEN, BLOOD 10 mg/dL (8-21)
[2016-05-02 06:49] LABS: ANION GAP < 3 (5-15); GFR AFRICAN AMERICAN 89 mL/min (>90)
[2016-05-02 06:56] LABS: BASOPHILS # (AUTO) 0.1 K/uL (0.0-0.2); BASOPHILS % (AUTO) 0.6 % (0.0-2.0); EOSINOPHILS % (AUTO) 0.2 % (0.0-4.0); HEMATOCRIT 34.4 % (36-54); LYMPHOCYTES # (AUTO) 0.5 K/uL (1.0-5.5); LYMPHOCYTES % (AUTO) 4.8 % (20.5-51.5); MEAN CORPUSCULAR HEMOGLOBIN 33 pg (27-31); MEAN CORPUSCULAR HGB CONC 32 % (32-36); MEAN CORPUSCULAR VOLUME 103 fL (79.0-98.0); MONOCYTES # (AUTO) 0.6 K/uL (0.0-1.0); MONOCYTES % (AUTO) 6.5 % (1.7-9.3); NEUTROPHILS # (AUTO) 8.7 K/uL (1.8-7.7); NEUTROPHILS % (AUTO) 87.9 % (40.0-70.0); PLATELET COUNT (AUTO) 192 K/uL (130-430); RED BLOOD CELL COUNT(AUTO) 3.34 MIL/uL (4.2-6.2); RED CELL DISTRIBUTION WIDTH 12.9 % (9.0-15.0); WHITE BLOOD COUNT (AUTO) 9.9 K/uL (4.8-10.8)
[2016-05-02 08:19] LABS: ABG TOTAL HEMOGLOBIN 12.1 G/dL (12.0-18.0); BLOOD GAS BASE EXCESS 5.8 mmol/L (-3.0-3.0); BLOOD GAS COHb% 0.7 % (0.5-1.5); BLOOD GAS HHB 2.5 % (0.0-6.0)
[2016-05-02] MEDS: methylPREDNISolone SOD SUCC 40 MG/ML VIAL IVP SCH (09:30)
[2016-05-02] MEDS: levETIRAcetam 500 MG in NS 100 ML IV SCH ×2 (09:30→20:44)
[2016-05-02] MEDS: PANTOPRAZOLE SODIUM 40 MG/VIAL (PROTONIX) IVP SCH ×2 (09:30→20:44)
[2016-05-02] MEDS: FLUCONAZOLE 200 mg/ NS 100 ML IV SCH (09:31)
[2016-05-02] MEDS: ATORVASTATIN 20 MG TABLET PO SCH (10:04)
[2016-05-02] MEDS: CARVEDILOL 6.25 MG TABLET (COREG) PO SCH ×2 (10:05→20:45)
[2016-05-02] MEDS: ASPIRIN 81 MG TAB.CHEW PO SCH (10:06)
[2016-05-02] MEDS: MINERAL OIL 30 ML UDC NG SCH (10:07)
[2016-05-02 11:40] LABS: ABG TOTAL HEMOGLOBIN 11.4 G/dL (12.0-18.0); BLOOD GAS BASE EXCESS 6.1 mmol/L (-3.0-3.0); BLOOD GAS COHb% 0.3 % (0.5-1.5); BLOOD GAS HHB 2.5 % (0.0-6.0); BLOOD GAS PH 7.309 (7.350-7.450); BLOOD O2Hb% 96.6 % (94.0-97.0)
[2016-05-02] MEDS: D5/0.45 NS 1,000 ML IV SCH ×2 (11:40→21:33)
[2016-05-02] MEDS ORDERED: INSULIN REGULAR, HUMAN 100 UNITS/ML, 10 ML VIAL SUBCUT ONE (19:45)
[2016-05-02] MEDS: BUDESONIDE 0.5 MG/2 ML AMPUL.NEB INH SCH (19:46)
[2016-05-02] MEDS: ENOXAPARIN SODIUM 40 MG/0.4 ML SYRINGE SUBCUT SCH (20:45)
[2016-05-02] MEDS ORDERED: INSULIN GLARGINE 100 UNITS/ML 10 ML VIAL SUBCUT SCH (21:00)
[2016-05-02] MEDS: LORazepam 2 MG/ML VIAL IVP PRN (22:33)
[2016-05-03] VITALS (20 sets, daily range): BP systolic 127–156; BP diastolic 69–93; PULSE 52–96; RESP 15–25; TEMP 97–99; O2SAT 95–100
[2016-05-03] MEDS: INSULIN REGULAR, HUMAN 100 UNITS/ML, 10 ML VIAL (novoLIN R) SUBCUT PRN ×3 (00:06→11:44)
[2016-05-03] MEDS: ALBUTEROL SULFATE 0.083% 2.5 MG/3 ML VIAL.NEB INH PRN (01:40)
[2016-05-03] MEDS: IPRATROPIUM BROM 0.5 MG/2.5 ML VIAL.NEB (ATROVENT) INH PRN (01:40)
[2016-05-03] MEDS: ALBUTEROL SULFATE 0.083% 2.5 MG/3 ML VIAL.NEB INH SCH ×3 (03:14→11:07)
[2016-05-03] MEDS: SODIUM CHLORIDE IV SCH ×10 (03:40)
[2016-05-03] MEDS: POTASSIUM CHLORIDE IV SCH ×10 (03:40)
[2016-05-03] MEDS: [UNRECOGNIZED DRUG - OTHER] IV SCH ×10 (03:40)
[2016-05-03] MEDS: TPN CENTRAL IV SCH ×10 (03:40)
[2016-05-03] MEDS: PIPERACILLIN/TAZO 3.375/DEX-IS 50 ML IV SCH ×2 (05:32→11:25)
[2016-05-03] MEDS: BUDESONIDE 0.5 MG/2 ML AMPUL.NEB INH SCH (07:00)
[2016-05-03] MEDS: methylPREDNISolone SOD SUCC 40 MG/ML VIAL IVP SCH (09:43)
[2016-05-03] MEDS: PANTOPRAZOLE SODIUM 40 MG/VIAL (PROTONIX) IVP SCH (09:43)
[2016-05-03] MEDS: CARVEDILOL 6.25 MG TABLET (COREG) PO SCH (09:44)
[2016-05-03] MEDS: ASPIRIN 81 MG TAB.CHEW PO SCH (09:44)
[2016-05-03] MEDS: ATORVASTATIN 20 MG TABLET PO SCH (09:44)
[2016-05-03] MEDS: levETIRAcetam 500 MG in NS 100 ML IV SCH (09:46)
[2016-05-03] MEDS: FLUCONAZOLE 200 mg/ NS 100 ML IV SCH (09:46)
[2016-05-03] MEDS: MINERAL OIL 30 ML UDC NG SCH (09:49)
== END 2016-05-03 15:00 | DRG 4 ==
LOC: SED 15:20 → SIC 19:16
PROVIDERS: ADMIT Internal Medicine; ATTEND Internal Medicine
PROC: 5A1955Z Respiratory Ventilation, Greater than 96 Consecutive Hours (ICD-10-PCS; principal; 2016-04-13)
PROC: 0BH17EZ Insertion of Endotracheal Airway into Trachea, Via Natural or Artificial Opening (ICD-10-PCS; 2016-04-13)
PROC: 0B110F4 Bypass Trachea to Cutaneous with Tracheostomy Device, Open Approach (ICD-10-PCS; 2016-04-23)
DX: J69.0 Pneumonitis due to inhalation of food and vomit (principal); J96.02 Acute respiratory failure with hypercapnia; N17.0 Acute kidney failure with tubular necrosis; J44.1 Chronic obstructive pulmonary disease with (acute) exacerbation; I47.2 Ventricular tachycardia; K56.7 Ileus, unspecified; N39.0 Urinary tract infection, site not specified; E78.5 Hyperlipidemia, unspecified; D64.9 Anemia, unspecified; G40.909 Epilepsy, unspecified, not intractable, without status epilepticus; N40.0 Benign prostatic hyperplasia without lower urinary tract symptoms; E11.22 Type 2 diabetes mellitus with diabetic chronic kidney disease; E86.0 Dehydration; I12.9 Hypertensive chronic kidney disease with stage 1 through stage 4 chronic kidney disease, or unspecified chronic kidney disease; N18.9 Chronic kidney disease, unspecified; R13.10 Dysphagia, unspecified; E78.00 Pure hypercholesterolemia, unspecified; T38.0X5A Adverse effect of glucocorticoids and synthetic analogues, initial encounter; Z87.891 Personal history of nicotine dependence; Z79.82 Long term (current) use of aspirin; Z79.899 Other long term (current) drug therapy
CPT/HCPCS: 36415; 36600; 71010; 74000-TC; 74250-TC; 76700-TC; 76770; 80048; 80053; 80061; 80307; 81000-TC; 82542; 82803-TC; 82962; 83036; 83605; 83735-TC; 83880; 84100-TC; 84439; 84443-TC; 84478-TC; 84484; 85007; 85025; 85027; 85610-TC; 85730-TC; 87040-TC; 87070-TC; 87081; 87205-TC; 87230-TC; 93005; 93306; 94002; 94003; 94640; 94660; 96365; 96375; 99291; A6209; C1751; C9113; J1030; J1120; J1170; J1450; J1650; J1815; J1940; J1953; J2001; J2060; J2250; J2270; J2405; J2543; J2704; J2930; J3010; J3475; J3480; J3490; J7030; J7040; J7050; J7060; J7131; Q9963